=== PATIENT | male | born 1945 | race Caucasian/White ===

== ENCOUNTER 2021-03-23 08:17 | Emergency (ER) | payer MEDICARE, OTHER, SELFPAY ==
[2021-03-23 08:29] VITALS: BP 146/70; PULSE 57; RESP 18; TEMP 36.7; O2SAT 100
--- NOTE | 2021-03-23 08:55 | ED.SKABFB ---
HPI - Skin/Abscess/Foreign Bdy General Chief complaint: Skin/Abscess/Foreign Body Stated complaint: bites on butt, and infection in thumb Source: patient Mode of arrival: ambulatory Limitations: no limitations History of Present Illness HPI narrative: Patient is a 75-year-old male who presents complaining of right thumb pain and insect bites to buttocks. Patient reports poking self with a fishhook approximately 3 weeks ago. Reports intermittent infection in right thumb since. He reports small amount of drainage. He also reports insect bites to left buttocks x2 to 3 days. He denies all other complaints. He reports using Neosporin on thumb with limited relief. He reports tetanus is up-to-date. Denies any and all other complaints. MD complaint: insect bite/sting Related Data Home Medications Medication Instructions Recorded Confirmed amlodipine 5 mg PO DAILY 03/23/21 03/23/21 chlorthalidone 25 mg PO DAILY 03/23/21 03/23/21 cyclosporine [Restasis] 2 drp EACH EYE DAILY 03/23/21 03/23/21 omeprazole 20 mg PO DAILY 03/23/21 03/23/21 simvastatin 20 mg PO DAILY 03/23/21 03/23/21 tamsulosin 0.4 mg PO DAILY 03/23/21 03/23/21 trazodone 50 mg PO DAILY 03/23/21 03/23/21 venlafaxine 75 mg PO DAILY 03/23/21 03/23/21 Allergies Allergy/AdvReac Type Severity Reaction Status Date / Time No Known Allergies Allergy Verified 03/23/21 08:56 Review of Systems Review of Systems: CONSTITUTIONAL: Denies fever, chills, or sweats. EYES: Denies visual changes, redness, or discharge. ENT: Denies rhinorrhea, congestion, sore throat, or otalgia. CARDIOVASCULAR: Denies chest pain, palpitations, or edema. RESPIRATORY: Denies cough or dyspnea. GASTROINTESTINAL: Denies abdominal pain, nausea, vomiting, or diarrhea. GENITOURINARY: Denies dysuria or hematuria. SKIN: Denies rash or itching. MUSCULOSKELETAL: Denies back pain, joint pain, or myalgia. NEUROLOGIC: Denies headache, numbness, dizziness, or weakness. PSYCHIATRIC: Denies anxiety or depression. [facility] Past Medical History Medical History Anxiety BPH (benign prostatic hyperplasia) Depression HTN (hypertension) Hypercholesterolemia Surgical History Surgical History H/O transurethral resection of prostate History of lumbar fusion History of total replacement of right shoulder joint Family History Family History Mother Carcinoma of colon Social History Social History (Updated 03/23/21 @ 08:59 by WILDA Camargo) Smoking status: Never smoker Alcohol intake: current Alcohol use details: Occasional Substance use: never Comments At the time of signature, I have reviewed and agree with nursing past medical, surgical, social, and family history unless otherwise noted. Please see nursing chart for further information. There is no relevant family history pertinent to the presenting complaint. Exam Narrative: GENERAL: Well-appearing, well-nourished, and in no acute distress. HEAD: Normocephalic, atraumatic. EYES: EOMI. No redness or drainage. Conjunctiva are normal. ENT: Mucous membranes pink and moist. CHEST: No respiratory distress. HEART: Regular rate and rhythm. EXTREMITIES: Normal range of motion. SKIN: Warm and dry. Paronychia to right thumb, possible insect bites to left buttocks with mild erythema, no drainage NEURO: No focal deficits. Alert and oriented x3. Gait steady. PSYCH: Normal affect. No signs of depression or anxiety. Course Vital Signs Vital signs: Vital Signs Temperature 36.7 C 03/23/21 08:29 Pulse Rate 57 L 03/23/21 08:29 Respiratory Rate 18 03/23/21 08:29 Blood Pressure 146/70 H 03/23/21 08:29 Pulse Oximetry 100 03/23/21 08:29 Temperature 36.7 C 03/23/21 08:29 Pulse Rate 57 L 03/23/21 08:29 Respiratory Rate 18 03/23/21 08:29 Blood Pressure 146
== END 2021-03-23 09:12 | disposition home or self-care (01) ==
PROVIDERS: Emergency Provider Nurse Practitioner; PCP Internal Medicine
DX: S30.860A Insect bite (nonvenomous) of lower back and pelvis, initial encounter (principal); W57.XXXA Bitten or stung by nonvenomous insect and other nonvenomous arthropods, initial encounter; L03.011 Cellulitis of right finger; N40.0 Benign prostatic hyperplasia without lower urinary tract symptoms; I10 Essential (primary) hypertension; E78.00 Pure hypercholesterolemia, unspecified; Z96.611 Presence of right artificial shoulder joint
CPT/HCPCS: 99203; G0463

== ENCOUNTER 2023-11-10 10:08 | Emergency (ER) | payer MEDICARE, OTHER, SELFPAY ==
--- NOTE | ~2023-11-10 | XR_ITS ---
XR chest 2V DATE: 11/10/2023 10:45 INDICATION: Cough. History of pneumonia with scarring. TECHNIQUE: 2 views COMPARISON: None FINDINGS: Normal heart size. There is aortic calcification and tortuosity. No hilar or mediastinal en largement. The lungs are hyperinflated suggesting obstructive airways disease. No pulmonary infiltrate or consol idation, pleural effusion or pulmonary vascular congestion or pneumothorax. Diffuse avascular hyperostosis and dextro scoliosis of the thoracic spine. Right glenohumeral joint replacement. 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
[2023-11-10 10:18] VITALS: BP 150/74; PULSE 61; RESP 18; TEMP 36.5; O2SAT 97
--- NOTE | 2023-11-10 10:24 | ED.GENADULT ---
HPI - General Adult General Chief complaint: Upper Respiratory Infection Stated complaint: cough,caio Source: patient, RN notes reviewed and old records reviewed Mode of arrival: ambulatory Limitations: no limitations History of Present Illness HPI narrative: 78-year-old male patient presents to [facility] with complaints cough, shortness of breath, chest pain this started 4-5 days ago. Patient states taking Mucinex and Zyrtec with no relief. Patient denies sinus congestion. Related Data Home Medications Medication Instructions Recorded Confirmed amlodipine 5 mg tablet 5 mg PO DAILY 03/23/21 02/07/22 chlorthalidone 25 mg tablet 25 mg PO DAILY 03/23/21 02/07/22 omeprazole 20 mg capsule,delayed 20 mg PO DAILY 03/23/21 02/07/22 release simvastatin 20 mg tablet 20 mg PO DAILY 03/23/21 02/07/22 tamsulosin 0.4 mg capsule 0.4 mg PO DAILY 03/23/21 02/07/22 venlafaxine 75 mg capsule,extended 75 mg PO DAILY 03/23/21 02/07/22 release 24 hr alprazolam 1 mg tablet mg 11/10/23 finasteride 5 mg tablet mg 11/10/23 11/10/23 testosterone enanthate 75 mg/0.5 mg subcut 11/10/23 mL subcutaneous auto-injector (Xyosted) Allergies Allergy/AdvReac Type Severity Reaction Status Date / Time No Known Allergies Allergy Verified 11/10/23 10:26 Review of Systems Constitutional: Constitutional: Reports no additional constitutional complaints, Denies body ache(s), Denies chills, Denies fatigue, Denies fever(s) and Denies headache(s) Eyes: Eyes: Reports no additional eye complaints and Denies blurry vision ENT: Reports system reviewed and no additional complaints, except as documented, Denies vertigo, Denies dizziness, Denies ear discharge, Denies otalgia, Denies facial pain, Denies headache(s), Denies nasal congestion, Denies nasal discharge, Denies sinus pain, Denies sinus pressure and Denies sore throat Cardiovascular: Cardiovascular: Reports no additional cardiovascular complaints, Reports chest pain, Denies chest pain at rest, Denies rapid heart rate and Reports dyspnea Respiratory: Respiratory: Reports no additional respiratory complaints, Reports chest congestion, Reports cough, Denies pain on inspiration, Reports pain with cough and Reports dyspnea Gastrointestinal: Gastrointestinal: Denies abdominal pain, Denies diarrhea, Denies nausea and Denies vomiting Integumentary/Breasts: Skin/Breast: Denies rash Neurologic: Reports system reviewed and no additional complaints, except as documented, Denies vertigo, Denies dizziness and Denies headache(s) Endocrine: Endocrine: Denies fatigue PMFSH Past Medical History Medical History Anxiety BPH (benign prostatic hyperplasia) Depression HTN (hypertension) Hypercholesterolemia Surgical History Surgical History H/O transurethral resection of prostate History of lumbar fusion History of total replacement of right shoulder joint Family History Family History Mother Carcinoma of colon Social History Social History Smoking status: Never smoker Alcohol intake: current Alcohol use details: Occasional Substance use: never Comments At the time of my signature, I reviewed and agree with the nursing past medical, surgical, social, and family history. There is no relevant family history pertinent to the patient complaint. Exam Const: General: cooperative, no acute distress, ill appearing acutely and well nourished Nutritional Appearance: well nourished Orientation/consciousness: patient oriented x3 Limitations: no limitations HENMT: Head: normal to inspection and normocephalic Ears: external ears normal, TM's normal bilaterally, EAC's normal and mastoids normal Face/Nose/Sinus: normal facial exam Face and sinus: normal facial exam Mouth: Yes Norm
--- NOTE | 2023-11-10 10:29 | ECG_ITS ---
SEE SCANNED COPY FOR CONFIRMED REPORT MTDD
== END 2023-11-10 10:57 | disposition short-term general hospital (02) ==
PROVIDERS: Emergency Provider Registered Nurse; PCP Internal Medicine
DX: I45.10 Unspecified right bundle-branch block (principal); I44.4 Left anterior fascicular block; R06.00 Dyspnea, unspecified; R07.9 Chest pain, unspecified; R05.1 Acute cough; N40.0 Benign prostatic hyperplasia without lower urinary tract symptoms; I10 Essential (primary) hypertension; E78.00 Pure hypercholesterolemia, unspecified; F41.9 Anxiety disorder, unspecified; F32.A Depression, unspecified; Z96.611 Presence of right artificial shoulder joint
CPT/HCPCS: 71046; 93005; 99213; G0463

== ENCOUNTER 2025-01-14 07:47 | Outpatient (CLI) | payer MEDICARE, OTHER, SELFPAY ==
--- OUTSIDE RECORDS SUMMARY | 2025-01-14 07:49 | XMS_ITS | Encounter Summary ---
Author Organization [facility] Address [address] [place] [address] Phone Care Team Providers Care Survey Compiler Name Role Phone Stone Cano MD Primary Care Provider Santana Hicks APRN, TMH TEACHER Unavailable [phone] Emiliano Dave MD Unavailable [phone] Reason for Visit * Reason Comments Medication Refill Encounter Details Date Type Department Care Team (Late st Contact Info) Description 02/18/2023 Refill [facility] - Family Medicine [facility] [address] [place] [id number] Stone Cano MD [address] [address] Medication Refill Social History Tobacco Use Types Packs/Day Years Used Date Smoking Tobacco: Never Smokeless Tobacco: Never Alcohol Use Standard Drinks/Week Comments Yes 0 (1 standard drink = 0.6 oz pur e alcohol) twice a week PHQ-2 Answer Date Recorded Total Score - Questions 1-9 0 08/17 Sexually Active Control Partners Comments Yes Female Sex and Gender Information Value Date Recorded Sex Assigned at Not on file Legal Sex Male 8:44 PM CDT Gender Identity Not on file Sexual Orientation Not on file documented as of this encounter Miscellaneous Notes * Telephone Encounter - Ruth Smith RN - 02/19/2023 11:34 AM CDT PDMP 11/07/22 Medication failed the protocol, provider to review and approve the medication order if appropriate. Requested Prescriptions Pending Prescriptions Disp Refills ALPRAZolam (XANAX) 1 MG Tablet [Pharmacy Med Name: ALPRAZOLAM TABS 1MG] 180 Tablet 0 Sig: TAKE 1 TABLET TWICE A DAY NEEDED FOR ANXIETY Not Delegated - Benzodiazepines Protocol Failed - 02/18/2023 1:02 PM Failed - This refill cannot be delegated Passed - Visit with relevant provider in past 12 months or upcoming 90 days Recent Visits Date Type Provider Dept 09/05/22 Office Visit Stone Cano MD [facility] 02/28/22 Office Visit Stone Cano MD [facility] Showing recent visits within past 365 days and meeting all other requirements Future Appointments Date Type Provider Dept 03/06/23 Appointment Stone Cano MD [facility] Showing future appointments within next 90 days and meeting all other requirements documented in this encounter Plan of Treatment Upcoming Encounters Date Type Department Care Team (Late st Contact Info) Description 01/19/2025 11:15 AM CDT Office Visit [facility] [address] [place] [address] Santana Hicks APRN, TMH TEACHER [address] [place] [address] 02/23/2025 10:30 AM CDT [facility] - [facility] [address] [place] [address] Stone Cano MD [address] [address] documented as of this encounter Visit Diagnoses Diagnosis Anxiety Anxiety state, unspecified documented in this encounter Additional Health Concerns Infection Onset Date Last Indicated Resolved Time COVID - 19 11/10/2023 11/10/2023 11/10/2023 12:3 1 PM CDT Assessment Noted Time PHQ-9 Depression Total Score: 0 09/05/19 8:00 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
--- OUTSIDE RECORDS SUMMARY | 2025-01-14 07:49 | XMS_ITS | Encounter Summary ---
Author Organization [facility] Address [address] [place] [address] Phone Care Team Providers Care Coke Handling Supervisor Name Role Phone Stone Cano MD Primary Care Provider Santana Hicks APRN, INSTALLMENT ACCOUNT CHECKER Unavailable Emiliano Dave MD Unavailable [phone] Reason for Visit * Reason Comments Medication Refill Encounter Details Date Type Department Care Team (Late Contact Info) Description 11/07/2022 Refill [facility] [address] [place] [id number] Santana Hicks, UPS DRIVER, INSTALLMENT ACCOUNT CHECKER [address] [place] [address] Medication Refill Social History Tobacco Use Types [...] encounter Miscellaneous Notes * Telephone Encounter - Eve Villarreal RN - 11/07/2022 11:53 AM CDT Medication [facility] and [facility] for pediatric and adult patients. documented in this encounter Plan of Treatment Upcoming Encounters Date Type Department Care Team (Late st Contact Info) Description 01/19/2025 11:15 AM CDT Office Visit [facility] [address] [place] [address] Santana Hicks APRN, INSTALLMENT ACCOUNT CHECKER [address] [place] [address] 02/23/2025 10:30 AM CDT Office Visit [facility] - Family [facility] [address] [place] [address] Stone Cano MD #[address] [address] documented as of this encounter Visit Diagnoses Diagnosis Benign non-nodular prostatic hyperplasia with lower urinary tract symptoms documented in this encounter Additional Health Concerns Infection Onset Date Last Indicated Resolved Time COVID - 19 11/10/2023 11/10/2023 11/10/2023 12:3 1 PM CDT Assessment Noted Time PHQ-9 Depression Total Score: 0 09/05/19 23 8:00 AM COFFEE 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
--- OUTSIDE RECORDS SUMMARY | 2025-01-14 07:49 | XMS_ITS | Continuity of Care Document ---
Author Organization [facility] Address [address] [place] [address] Phone Care Team Providers Care Public Policy Professor Name Role Phone Unavailable Unavailable Unavailable Procedures Procedure Date Comprehensive Oral Evaluation 7 Full Mouth Series Of Radiographic Images Dental Panoramic Radiographic Image Advance Directives Directive Yes / No Effective Date File Name No Information Encounters Encounter Description Practice Location Reason(s) For Visit Diagnoses Date Provider Providers Copied on Encounter [facility] , [address], [place], [place], [id number], tel:[phone] [facility] [place] Encounter for dental exam and cleaning w abnormal findings No Information Referring Provider: Chayito Limon, [address], [place], [address]. tel:[phone] Family History Family Member Type Diagnosis Age At Onset No Information Payers Payer name Insurance type Covered republican ID Authoriza tion(s) No Information Social History Type Description Quantity Date Captured Comments Sex Male Smoking Status No Information Chief Complaint And Reason For Visit No Information Reason For Referral Reason For Referral No Information History Of Present Illness Encounter Date Complaint History Of Prese nt Illness No Information Functional Status Date Functional Assessmen t No Information Instructions Date Instruction Additional Infor mation No Information Assessments Type Assessment Date No Information Patient Care Teams Name Effective Dates (start - stop) Status Members No Information
--- OUTSIDE RECORDS SUMMARY | 2025-01-14 07:49 | XMS_ITS | Clinical Summary ---
Author Organization [facility] Address [address] [place] [address] Care Team Providers Care Bounty Hunter Name Role Phone Stone Cano MD Primary Care Provider [phone] [facility],non-owned Affiliates and Associated Physician Practices is amultiple site organization consisting of ambulatory clinics and hospital sitesin [place], [place], [place]. This disclosure is being madepursuant to the Care Everywhere program and may not contain all information available regarding this patient. 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 Gender Identity Not on file Sexual Orientation Not on file Plan of Treatment Health Maintenance Due Date Last Done Comments HEPATITIS C SCREENING 07/26/1963 DTAP/TDAP/TD VACCINES (1 - Tdap) 1966 PNEUMOCOCCAL VACCINE 50+ (1 of 1 - PCV) 1997 ZOSTER VACCINE (1 of 2) 1997 Respiratory Syncytial Virus (RSV) Vaccine Pt: or over 60 yrs (1 - 1-dose 75+ series) 2022 COVID-19 VACCINE (2 - season) 2024 08/24/2020 DEPRESSION SCREENING 07/16/2024 INFLUENZA VACCINE (Season Ended) 2025 04/29/2019, 04/11/2018, 03/29/2017, Additional history exists HEPATITIS B VACCINE Aged Out No longe r eligible based on patient's age to complete this topic HIB VACCINE Aged Out No longer eligi ble based on patient's age to complete this topic HPV VACCINE Aged Out No longer eligi ble based on patient's age to complete this topic MENINGOCOCCAL (Group B) VACCINE SHARED DECISION-MAKING Aged Out No longer eligible based on patient's age to complete this topic MENINGOCOCCAL GROUPS A/C/Y/W VACCINE Aged Out No longer eligible based on patient's age to complete this topic Insurance MEDICARE [facility] Address: [address] [place] [address] MEDICARE Care Teams Bounty Hunter Relationship Specialty Start Date End Date Stone Cano MD PCP - General 03/07/18
--- OUTSIDE RECORDS SUMMARY | 2025-01-14 07:49 | XMS_ITS | Referral Summary ---
Author Organization [address] [facility] [place] Address [address] [place] [address] Care Team Providers Care Business Case Analyst Name Role Phone Stone Cano MD Primary Care Provider [phone] Stone Cano MD Unavailable [phone] Lisa Foss Unavailable [phone] Encounters Date Type Department Care Team Description 12/23/2024 11:30 AM CDT Office Visit [facility] Surgery [address] [place] [address] A [address] [place] [address] Ashley Amor NP Arthritis of carpometacarpal (CMC) joint of right thumb (Primary Dx) 11/05/2024 10:15 AM CDT Office Visit [facility] [address] [facility] [address] [place] [address] Lisa Mack DO Acute non-recurrent maxillary sinusitis (Primary Dx); Bilateral impacted cerumen; Chronic maxillary sinusitis; Nasal congestion from Last 3 Months Allergies No known active allergies Medications ALPRAZolam (XANAX) 1 mg tablet Take 1 tablet (1 mg total) by mouth 2 (two) times a day as needed 06/24/20 19 Active amLODIPine (NORVASC) 5 mg tablet TAKE 1 TABLET DAILY 03/05/20 19 Active tamsulosin (FLOMAX) 0.4 mg extended release capsule 1 capsule (0.4 mg total) Active omeprazole (PriLOSEC) 20 mg capsule Take 1 capsule (20 mg total) by mouth daily Active simvastatin (ZOCOR) 20 mg tablet 08/19/19 20 Active chlorthalidone 25 mg tablet TAKE 1 TABLET DAILY 08/19/19 20 Active metroNIDAZOLE (METROGEL) 1 % gel 10/16/19 20 Active ketoconazole (NIZORAL) 2 % shampoo 10/16/19 20 Active Xyosted 75 mg/0.5 mL auto-injector 07/04/20 22 Active venlafaxine XR (EFFEXOR-XR) 150 mg 24 hr capsule 09/05/19 23 Active clindamycin-be nzoyl peroxide (BENZACLIN) gel 05/02/20 23 Active clobetasoL (TEMOVATE) 0.05 % external solution 05/02/20 23 Active finasteride (PROSCAR) 5 mg tablet TAKE 1 TABLET DAILY 90 tablet 3 11/20/19 24 Active fluticasone propionate (FLONASE) 50 mcg/actuation nasal sprayIndicatio ns:Nasal congestion Administer 2 sprays into each nostril daily 16 each 11/06/19 25 025 Discontinued Hospital, Clinic, or Other Facility Administered Medication Ordered Dose Route Frequency Start Date End Date Status lidocaine (XYLOCAINE) 10 mg/mL (1 %) injection 10 mgIndications:Administ ration of Local Anesthesia 10 mg infiltrate Once 12/23/2024 12/23/2024 Ended triamcinolone (KENALOG) 40 mg/mL injection 40 mgIndications:Arthriti s of carpometacarpal (CMC) joint of right thumb 40 mg OTHER Once 12/23/2024 12/23/2024 Ended Active Problems Problem Noted Date Diagnosed Date Chronic maxillary sinusitis 11/05/2024 Assessment & Plan (11/05/2024 4:00 PM CDT): Flonase 2 sprays into each nostril while looking down over the sink, do not sniff in or blow nose after use for at least 30 minutes daily Cefdinir twice daily with a meal for 14 days Call if no improvement Bilateral impacted cerumen 11/05/2024 Assessment & Plan (11/05/2024 3:59 PM CDT): Flonase 2 sprays into each nostril while looking down over the sink, do not sniff in or blow nose after use for at least 30 minutes daily Cefdinir twice daily with a meal for 14 days Call if no improvement Alcohol abuse 08/28/2023 Major depressive disorder, recurrent 08/28/2023 Adenomatous polyp of colon 07/30/2023 Change in bowel function 07/30/2023 History of reverse total rep lacement of right shoulder joint 08/29/2019 Overview (08/29/2019): Added automatically from request for surgery [id number] Anxiety 09/05/2018 Chronic midline low back pain without sciatica 0 09/05/2018 Encounter for screening for pneumonia 02/28/2018 Borderline diabetes 12/21/2016 Hyperglycemia 12/21/2016 Elevated PSA 11/02/2016 Acute non-recurrent maxillary sinusitis 05/05/20 16 Assessment & Plan (11/05/2024 10:49 AM CDT): Flonase 2 sprays into each nostril while looking down over the sink, do not sniff in or blow nose after use for at least 30 minutes daily Cefdinir twice daily with a meal for 14 days Call if no improvement Insomnia 03/16/2016 Memory loss 01/06/2016 Depression 06/03/2015 GERD (gastroesophageal reflux disease) 5 HTN (hypertension) 06/03/2015 Hyperhidrosis 06/03/2015 Hyperlipemia 06/03/2015 Low testosterone 06/03/2015 Slowing of urinary stream 01/27/2014 Overview (10/19/2016): SLOWING URINARY STREAM Benign prostatic hypertrophy without urinary obs truction 11/29/2013 Overview (10/19/2016): BPH W/O URINARY OBSTRUCT Localized osteoarthrosis 09/26/2013 Overview (10/20/2016): LOC OSTEOARTH NOS-HAND Resolved Problems Problem Noted Date Diagnosed Date Resolved Date Rotator cuff tear arthropath y of right shoulder 08/15/2019 09/18/2019 Overview (08/15/2019): Added automatically from request for surgery [id number] Social History Tobacco Use Types Packs/Day Years Used Date Smoking Tobacco: Never Smokeless Tobacco: Never Tobacco Cessation:Counseling Given: Not Answered Alcohol Use Standard Drinks/Week Comments Yes 0 (1 standard drink = 0.6 oz pur e alcohol) occasional Sex and Gender Information Value Date Recorded Sex Assigned at Not on file 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 Gender Identity Not on file Sexual Orientation Not on file Last Filed Vital Signs Vital Sign Reading Time Taken Comments Blood Pressure 143/73 11/05/2024 10:13 AM CDT Pulse 68 11/05/2024 10:13 AM CDT Temperature 37.1 C (98.7 F) 07/04/2021 4:24 PM ASSISTANT COACH Respiratory Rate 18 11/05/2024 10:13 AM CDT Oxygen Saturation 99% 11/05/2024 10:13 AM CDT Inhaled Oxygen Concentration - - Weight 85.3 kg (188 lb) 11/05/2024 10:13 AM CDT Height 167.6 cm (5' 5.98) 11/05/2024 10:13 AM C DT Body Mass Index 30.36 11/05/2024 10:13 AM CDT Plan of Treatment Not on file Medical Devices Implanted Type Area Supervisor Natural [employer] Plant Device Identifier Shelf Expiration Date Model / Serial / Lot Exactech 320-15-02 Superior Augment Glenoid 10d Plate Bone Average Shoulder System - [id number] - [id number] Implanted:Qty: 1 on 09/02/2019 by Wilmer Rebolledo MD at [facility] Right: Shoulder Exactech 06/10/2028-15- / [id number] / Exactech 32015- Equinoxe Lock Reverse Shoulder Glenosphere Screw Bone - [id number] - [id number] Implanted:Qty: 1 on 09/02/2019 by Wilmer Rebolledo MD at [facility] Right: Shoulder Exactech 05/14/2024-15- / [id number] / Exactech 320-00 Reverse Torque Define Shoulder Kit Screw - [id number] - [id number] Implanted:Qty: 1 on 09/02/2019 by Wilmer Rebolledo MD at [facility] Right: Shoulder Exactech 07/21/2024 320-20-00 / [id number] / Exactech 320-20-38 Equinoxe 4.5mm 38mm Kit Compression Lock Cap Reverse Shoulder - [id number] - [id number] Implanted:Qty: 1 on 09/02/2019 by Wilmer Rebolledo MD at [facility] Right: Shoulder Exactech 10/23/2023 320-20-38 / [id number] / Exactech 320-20-30 Equinoxe 4.5mm 30mm Kit Compression Lock Cap Reverse Shoulder - [id number] - [id number] Implanted:Qty: 1 on 09/02/2019 by Wilmer Rebolledo MD at [facility] Right: Shoulder Exactech 09/12/2023 320-20-30 / [id number] / Exactech 320-01-42 Equinoxe 42mm Glenosphere Shoulder Component Glenoid - [id number] - [id number] Implanted:Qty: 1 on 09/02/2019 by Wilmer Rebolledo MD at [facility] Right: Shoulder Exactech 04/30/2029 320-01-42 / [id number] / Exactech 300-01-13 Equinoxe 13mm Press Fit Primary Shoulder Stem Humeral - [id number] - [id number] Implanted:Qty: 1 on 09/02/2019 by Wilmer Rebolledo MD at [facility] Right: Shoulder Exactech 01/01/2028 300-01-13 / [id number] / Exactech 320-10-00 Equinoxe Reverse Shoulder +0mm Tray Humeral Adapter - [id number] - [id number] Implanted:Qty: 1 on 09/02/2019 by Wilmer Rebolledo MD at [facility] Right: Shoulder Exactech 06/25/2029 320-10-00 / [id number] / Exactech 320-42-00 Equinoxe 42mm Reverse Shoulder +0mm Liner Humeral - [id number] - [id number] Implanted:Qty: 1 on 09/02/2019 by Wilmer Rebolledo MD at [facility] Right: Shoulder Exactech 05/18/2024 320-42-00 / [id number] / Procedures Procedure Name Priority Date/Time Associated Diagnosis Comments MN REMOVAL IMPACTED CERUMEN INSTRUMENTATION UNILAT Routine 11/05/2024 10:15 AM CDT Bilateral impacted cerumen from Last 3 Months Results * MN REMOVAL IMPACTED CERUMEN INSTRUMENTATION UNILAT (11/05/2024 10:15 AM CDT) Narrative Lisa Mack DO - 11/05/2024 10:15 AM CDT Lisa Mack DO 11/05/2024 4:17 PM Ear Cerumen Removal Performed by: Lisa Mack DO Authorized by: Lisa Mack DO Consent Given by: Patient Timeout: prior to procedure the correct patient, procedure, and site was verified Verbal consent obtained: Yes Written consent obtained: No Risks, alternatives, and patient questions discussed: Yes Preparation: Patient was prepped using a clean technique Location: Bilateral L ear cerumen impacted?: Yes L ear method of removal: Instrumentation and magnification L ear instrumentation: Curette L ear magnification: Operating microscope R ear cerumen impacted?: Yes R ear method of removal: Instrumentation and magnification R ear instrumentation: Curette R ear magnification: Operating microscope Inspection: TM intact Hearing quality: Improved Patient tolerance: Patient tolerated the procedure well with no immediate complications Lisa Mack DO IN CLINIC/BEDSIDE ORDERABLES Final Result from Last 3 Months Insurance MEDICARE FOR LIFE MEDICARE FOR LIFE MEDICARE FOR LIFE MEDICARE FOR LIFE Advance Directives For more information, please contact: [phone] * Full Code (Latest Code Status on File) Date Activated Date Inactivated Comments 09/02/2019 4:09 PM 09/03/2019 5:14 PM Care Teams Business Case Analyst Relationship Specialty Start Date End Date Stone Cano MD [address] [facility] [address] [address] PCP - General 05/11/19 Stone Cano MD [address] [facility] [address] [address] 05/11/19 Lisa Foss PA [address] [facility] [address] [address] Physician Climatology Professor Orthopedic Surgery 09/03/19
--- OUTSIDE RECORDS SUMMARY | 2025-01-14 07:49 | XMS_ITS | Encounter Summary ---
Author Organization [facility] Address [address] [place] [address] Phone Care Team Providers Care Proposal Analyst Name Role Phone Stone Cano MD Primary Care Provider Santana Hicks APRN, SEALING AND CANCELING MACHINE OPERATOR Unavailable [phone] Emiliano Dave MD Unavailable [phone] Reason for Visit * Reason Comments Medication Refill Encounter Details Date Type Department Care Team (Late Contact Info) Description 12/12/2023 Refill [facility] #[address] [place] [id number] Santana Hicks, JET DYEING MACHINE OPERATOR, SEALING AND CANCELING MACHINE OPERATOR [address] [place] [address] Medication Refill Social History Tobacco Use Types Packs/Day Years Used Date Smoking Tobacco: Never Smokeless Tobacco: Never Alcohol Use Standard Drinks/Week Comments Yes 0 (1 standard drink = 0.6 oz pur e alcohol) twice a week [facility] Utilities Answer Date Recorded In the past 12 months has [employer] electric, gas, oil, or water company threatened to shut off services in your home? No 08/18/2023 Social Connection and Isolation Panel Answer Date Recorded In a typical week, how many times do you talk on the phone with family, friends, or neighbors? More than three times a week 08/18/2023 How often do you get togethe r with friends or relatives? More than three times a week 08/18/2023 How often do you attend chur or episcopalian services? Patient declined 08/18/2023 Do you belong to any clubs o r organizations such as holiness groups, unions, fraternal or athletic groups, or school groups? Patient declined 08/18/2023 How often do you attend meet ings of the clubs or organizations you belong to? Patient declined 08/18/2023 Are you , , di vorced, , never , or living with a partner? 08/18/2023 AUDIT-C Answer Date Recorded Q1: How often do you have a drink containing alc ohol? Patient declined 08/18/2023 Q2: How many drinks containi ng alcohol do you have on a typical day when you are drinking? Patient declined 08/18/2023 Q3: How often do you have si x or more drinks on one occasion? Patient declined 08/18/2023 Overall Financial Resource Strain (CARDIA) Answe r Date Recorded How hard is it for you to pa y for the very basics like food, housing, medical care, and heating? Not hard at all 08/18/2023 PHQ-2 Answer Date Recorded Total Score - Questions 1-9 0 11/2023 [facility] - Occupational Stress Questionnaire Answer Date Recorded Do you feel stress - tense, restless, nervous, or anxious, or unable to sleep at night because your mind is troubled all the time - these days? To some extent 08/18/2023 Exercise Vital Sign Answer Date Recorde d On average, how many days pe r week do you engage in moderate to strenuous exercise (like a brisk walk)? Patient declined On average, how many minutes do you engage in exercise at this level? Patient declined 08/18/2023 Hunger Vital Sign Answer Date Recorded Within the past 12 months, y ou worried that your food would run out before you got the money to buy more. Never true 08/18/19 24 Within the past 12 months, t he food you bought just didn't last and you didn't have money to get more. Never true 08/18/2023 PRAPARE - Transportation Answer Date Re corded In the past 12 months, has l ack of transportation kept you from medical appointments or from getting medications? No 09/2023 In the past 12 months, has l ack of transportation kept you from meetings, work, or from getting things needed for daily living? No 08/18/2023 Housing Stability Vital Sign Answer Shaun e Recorded In the last 12 months, was t here a time when you were not able to pay the mortgage or rent on time? No 08/18/2023 Number of Places Lived in the Last Year Not on f ile 08/18/2023 In the last 12 months, was t here a time when you did not have a steady place to sleep or slept in a skilled nursing (including now)? No 08/18/2023 Education Answer Date Recorded What is the highest level of school you have completed or the highest degree you have received? Some college, no degree 02/27/2023 Sexually Active Control Partners Comments Yes Female Sex and Gender Information Value Date Recorded Sex Assigned at Not on file Legal Sex Male 8:44 PM CDT Gender Identity Not on file Sexual Orientation Not on file documented as of this encounter Plan of Treatment Upcoming Encounters Date Type Department Care Team (Late st Contact Info) Description 01/19/2025 11:15 AM CDT Office Visit [facility] [address] [place] [address] Santana Hicks APRN, SEALING AND CANCELING MACHINE OPERATOR [address] [place] [address] 02/23/2025 10:30 AM CDT Office Visit [facility] - Family Medicine [facility] [address] [place] [address] Stone Cano MD [address] [address] documented as of this encounter Visit Diagnoses Diagnosis Benign non-nodular prostatic hyperplasia with lower urinary tract symptoms documented in this encounter Additional Health Concerns Assessment Noted Time PHQ-9 Depression Total Score: 0 08/20/19 24 8:46 AM 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
--- OUTSIDE RECORDS SUMMARY | 2025-01-14 07:49 | XMS_ITS | Encounter Summary ---
Author Organization [facility] Address [address] [place] [address] Phone Care Team Providers Care Horse Doctor Name Role Phone Stone Cano MD Primary Care Provider [phone] Santana Hicks APRN, FINAL TOUCH UP PAINTER Unavailable [phone] Emiliano Dave MD Unavailable [phone] Reason for Visit * Reason Comments Medication Refill Encounter Details Date Type Department Care Team (Late st Contact Info) Description 11/07/2022 Refill [facility] [address] [place] [id number] Stone Cano MD #[address] [address] Medication Refill Social History Tobacco Use Types [...] encounter Miscellaneous Notes * Telephone Encounter - Colleen Katz RN - 11/07/2022 9:41 AM CDT PDMP 08/07/22 Medication failed the protocol, provider to review and approve the medication order if appropriate. Requested Prescriptions Pending Prescriptions Disp Refills ALPRAZolam (XANAX) 1 MG Tablet [Pharmacy Med Name: ALPRAZOLAM TABS 1MG] 180 Tablet 0 Sig: TAKE 1 TABLET TWICE A DAY NEEDED FOR ANXIETY Not Delegated - Benzodiazepines Protocol Failed - 11/07/2022 9:26 AM Failed - This refill cannot be delegated Passed - Visit with relevant provider in past 12 months or upcoming 90 days Recent Visits Date Type Provider Dept 09/05/22 Office Visit Stone Cano MD [facility] 02/28/22 Office Visit Stone Cano MD [facility] Showing recent visits within past 365 days and meeting all other requirements Future Appointments No visits were found meeting these conditions. Showing future appointments within next 90 days and meeting all other requirements documented in this encounter Plan of Treatment Upcoming Encounters Date Type Department Care Team (Late st Contact Info) Description 01/19/2025 11:15 AM CDT Office Visit [facility] [address] [place] [address] Santana Hicks INTERNAL SALES, FINAL TOUCH UP PAINTER [address] [place] [address] 02/23/2025 10:30 AM CDT [facility] - [facility] [address] [place] [address] Stone Cano MD #[address] [address] documented as of this encounter Visit Diagnoses Diagnosis Anxiety Anxiety state, unspecified documented in this encounter Additional Health Concerns Infection Onset Date Last Indicated Resolved Time COVID - 19 11/10/2023 11/10/2023 11/10/2023 12:3 1 PM CDT Assessment Noted Time PHQ-9 Depression Total Score: 0 09/05/19 8:00 AM SHIPS OR BARGES LOADER documented as of this encounter Care Teams Horse Doctor Relationship Specialty Start Date End Date Stone Cano MD #[address] [address] PCP - General Family Medicine 06/03/15 Santana Hicks APRN, FINAL TOUCH UP PAINTER [address] [place] [address] Nurse Practitioner Advanced Practice Nurse 06/06/22 Emiliano Dave MD [address] [place] [address] Consulting Physician Gastroenterology 09/07/22 documented as of this encounter
--- OUTSIDE RECORDS SUMMARY | 2025-01-14 07:49 | XMS_ITS | Encounter Summary ---
Author Organization [facility] Address [address] [place] [address] Phone Care Team Providers Care Spike Machine Operator Name Role Phone Stone Cano MD Primary Care Provider Santana Hicks APRN, PROJ MGR Unavailable [phone] Emiliano Dave MD Unavailable [phone] Reason for Visit * Reason Comments Medication Refill Encounter Details Date Type Department Care Team (Late st Contact Info) Description 09/10/2023 Refill [facility] - Family Medicine [facility] [address] [place] [address] Stone Cano MD #[address] [address] Medication Refill Social History Tobacco Use Types Packs/Day Years Used Date Smoking Tobacco: Never Smokeless Tobacco: Never Alcohol Use Standard Drinks/Week Comments Yes 0 (1 standard drink = 0.6 oz pur e alcohol) twice a week [facility] Utilities Answer Date Recorded In the past 12 months has e electric, gas, oil, or water company threatened [...] How often do you attend chur or rastafarian services? Patient declined 08/18/2023 Do you belong to any clubs o r organizations such as yazidi groups, unions, fraternal or athletic groups, or [...] Total Score - Questions 1-9 0 11/2023 [facility] - Occupational Stress Questionnaire Answer Date Recorded [...] place to sleep or slept in a [facility] (including now)? No 08/18/2023 Education Answer Date [...] Telephone Encounter - Ruth Smith RN - 09/11/2023 8:20 AM CST PDMP 08/03/23 - 90 days Medication failed the protocol, provider to review and approve the medication order if appropriate. Requested Prescriptions Pending Prescriptions Disp Refills ALPRAZolam (XANAX) 1 MG Tablet [Pharmacy Med Name: ALPRAZOLAM TABS 1MG] 180 Tablet 0 Sig: TAKE 1 TABLET TWICE A DAY NEEDED FOR ANXIETY Not Delegated - Benzodiazepines Protocol Failed - 09/10/2023 10:38 AM Failed - This refill cannot be delegated Passed - Visit with relevant provider in past 12 months or upcoming 90 days Recent Visits Date Type Provider Dept 08/20/23 Office Visit Stone Cano MD [facility] 03/06/23 Office Visit Stone Cano MD [facility] Showing recent visits within past 365 days and meeting all other requirements Future Appointments No visits were found meeting these conditions. Showing future appointments within next 90 days and meeting all other requirements E COMMERCE MARKETING MANAGER documented in this encounter Plan of Treatment Upcoming Encounters Date Type Department Care Team (Late st Contact Info) Description 01/19/2025 11:15 AM CDT Office Visit [facility] [address] [place] [address] Santana Hicks APRN, PROJ MGR [address] [place] [address] 02/23/2025 10:30 AM CDT Office Visit [facility] [address] [place] [address] Stone Cano MD #[address] [address] documented as of this encounter Visit Diagnoses Diagnosis Anxiety Anxiety state, unspecified documented in this encounter Additional Health Concerns Infection Onset Date Last Indicated Resolved Time COVID - 19 11/10/2023 11/10/2023 11/10/2023 12:3 1 PM CDT Assessment Noted Time PHQ-9 Depression Total Score: 0 08/20/19 8:46 AM E COMMERCE MARKETING MANAGER documented as of this encounter Care Teams Spike Machine Operator Relationship Specialty Start Date End Date Stone Cano MD #[address] [address] PCP - General Family Medicine 06/03/15 Santana Hicks APRN, PROJ MGR [address] [place] [address] Nurse Practitioner Advanced Practice Nurse 06/06/22 Emiliano Dave MD [address] [place] [address] Consulting Physician Gastroenterology 09/07/22 documented as of this encounter
--- OUTSIDE RECORDS SUMMARY | 2025-01-14 07:49 | XMS_ITS | Continuity of Care Document ---
Author Name [facility] Organization [facility] Care Team Providers Care Assistant Product Manager Name Role Phone [facility] Unavailable Unavailable Problems Combined list of problems from Department [facility] and [facility] facilities. It does not include entries that were removed or entered in error. Problem Status Onset Date Problem Type Date of Resolution Comments Source Alcohol Abuse Active Condition [facility] Major Depressive Disorder, Recurrent Active Condition [facility] Medications Combined list of outpatient medications from [facility] and [facility] facilities.Medications provided include 1) outpatient medications from the last 15 months, and 2) patient-reported medications. Medication Details Route Status Patient Instructions Prescription Expires Prescription Number Last Dispense Date Ordering Provider Order Date Order Qty Source ALBUTEROL SULFATE HFA (albuterol sulfate), 90 MCG, HFA AER AD, INHALATION, [facility]/ IKMA, 6.7 g CANISTER Active [id number] 4 2023 6.7 Pharmac y Data Transac tion Service Facilit y ALPRAZOLAM (ALPRAZOLAM ), 1MG, TABLET, ORAL, ACTAVIS ELIZABE, 500 ea. BOTTLE Active [id number] 4 2023 180 Pharmac y Data Transac tion Service Facilit y ASPIRIN 81MG TAB,EC TAKE ONE TABLET BY MOUTH ONCE A DAY ORAL ACTIVE LATAL,BAR ISABELLE S 2011 [facility] ATENOLOL 50MG TAB TAKE ONE-HALF TABLET BY MOUTH ONCE A DAY ORAL ACTIVE LATAL,BAR ISABELLE S 2011 [facility] BENZONATATE (benzonatat e), 200 MG, CAPSULE, ORAL, STRIDES PHARMA, 100 ea. BOTTLE Active [id number] 4 2023 42 Pharmac y Data Transac tion Service Facilit y CHLORTHALID ONE (chlorthali done), 25 MG, TABLET, ORAL, 'S LAB, 1000 ea. BOTTLE Active [id number] 4 2023 90 Pharmac y Data Transac tion Service Facilit y CYANOCOBALA MIN 1000MCG TAB TAKE ONE TABLET BY MOUTH ONCE A DAY ORAL ACTIVE LATAL,JAYLAN ISABELLE S 2011 [facility] FINASTERIDE (FINASTERID E), 5 MG, TABLET, ORAL, EXELAN PHARMACE, 90 ea. BOTTLE Active [id number] 4 2023 90 Pharmac y Data Transac tion Service Facilit y FINASTERIDE 5MG TAB TAKE ONE TABLET BY MOUTH ONCE A DAY [facility] ACTIVE [facility] FISH OIL CAP/TAB TAKE 1 CAP/TAB BY MOUTH ONCE A DAY ORAL ACTIVE LATAL,[facility] GLUCOSAMINE CAP/TAB TAKE 1 CAP/TAB BY MOUTH ONCE A DAY ORAL ACTIVE LATAL,[facility] S 2011 [facility] HYDROCHLORO THIAZIDE 25MG TAB TAKE ONE TABLET BY MOUTH EVERY MORNING ORAL ACTIVE LATAL,[facility] MULTIVITAMI N/MINERALS ANTIOXIDANT CAP/TAB TAKE ONE TABLET BY MOUTH ONCE A DAY ORAL ACTIVE LATAL,[facility] 2011 [facility] MULTIVITAMI NS CAP/TAB TAKE ONE TABLET BY MOUTH ONCE A DAY ORAL ACTIVE LATAL,[facility] 2011 [facility] OMEPRAZOLE (omeprazole ), 20 MG, CAPSULE DR ORAL, [place], 1000 ea. BOTTLE Active [id number] 4 2023 90 Pharmac y Data Transac tion Service Facilit y OMEPRAZOLE 20MG CAP,EC TAKE 1 CAPSULE BY MOUTH EVERY MORNING ORAL ACTIVE LATAL,JAYLAN ISABELLE S 2011 [facility] POLYMYXIN B SUL-TRIMETH OPRIM (POLYMYXIN B SULFATE/TMP ), 10K/ML-0.1, DROPS, OPHTHALMIC, ARRIOLA PHARM, 10 ml DROP BTL Active [id number] 11/10/19 2 4 2023 10 Pharmac y Data Transac tion Service Facilit y PREDNISONE (prednisone ), 20 MG, TABLET, ORAL, NOVITIUM/AN I PH, 500 ea. BOTTLE Active [id number] 4 2023 30 Pharmac y Data Transac tion Service Facilit y PREDNISONE (prednisone ), 20 MG, TABLET, ORAL, NOVITIUM/AN I PH, 500 ea. BOTTLE Active [id number] 4 2023 10 Pharmac y Data Transac tion Service Facilit y QUINAPRIL HCL 20MG TAB TAKE TWO TABLETS BY MOUTH ONCE A DAY ORAL ACTIVE LATAL,JAYLAN TIANA S 2011 [facility] SIMVASTATIN 80MG TAB TAKE ONE-HALF TABLET BY MOUTH EVERY EVENING ORAL ACTIVE LATAL,JAYLAN ISABELLE S 2011 [facility] TAMSULOSIN HCL (TAMSULOSIN HCL), 0.4 MG, CAP.SR 24H, ORAL, ZYDUS PHARMACEU, 1000 ea. BOTTLE Active [id number] 4 2023 90 Pharmac y Data Transac tion Service Facilit y TAMSULOSIN HCL 0.4MG CAP TAKE 1 CAPSULE BY MOUTH ONCE A DAY ORAL ACTIVE LATAL,JAYLAN ISABELLE S 2011 [facility] XYOSTED (testostero ne enanthate), 100 MG/0.5, AUTO INJCT, SUBCUT, ANTARES PHARMA, .5 ml SYRINGE Active [id number] 4 2023 6 Pharmac y Data Transac tion Service Facilit y XYOSTED (testostero ne enanthate), 100 MG/0.5, AUTO INJCT, SUBCUT, ANTARES PHARMA, .5 ml SYRINGE Active [id number] 4 2023 2 Pharmac y Data Transac tion Service Facilit y XYOSTED (testostero ne enanthate), 100 MG/0.5, AUTO INJCT, SUBCUT, ANTARES PHARMA, .5 ml SYRINGE Cancele d [id number] : 2023 0 Pharmac y Data Transac tion Service Facilit y XYOSTED (testostero ne enanthate), 100 MG/0.5, AUTO INJCT, SUBCUT, ANTEmmaus Medical PHARMA, .5 ml SYRINGE Cancele d [id number] : 2023 0 Pharmac y Data Transac tion Service Facilit y Immunizations Combined list of available immunizations from the Department of Defense and Veterans Affairs facilities. Immunization Series Date Given Administered By Site Reaction Lot Number CVX Code Drug Licensed Occupational Therapist Status Comments Source influenza, high-dose, quadrivalent 2020 ALUL, () Not Given influenza , high-dose , quadrival ent [facility] influenza virus vaccine, split virus (incl. purified surface antigen)-reti red CODE 1 2006 Unknown, Provider [id number] 15 Sanofi Pasteur ([facility]) complet ed influenza virus vaccine, split virus (incl. purified surface antigen)- retired CODE [facility] typhoid vaccine, parenteral, other than acetone-kille d, dried 1 2006 Unknown, Provider [id number] Sanofi Pasteur ([facility]) complet ed typhoid vaccine, parentera l, other than acetone-k illed, dried [facility] influenza virus vaccine, split virus (incl. purified surface antigen)-reti red CODE 1 2005 Unknown, Provider [id number] 15 Sanofi Pasteur ([facility]) complet ed influenza virus vaccine, split virus (incl. purified surface antigen)- retired CODE [facility] influenza virus vaccine, split virus (incl. purified surface antigen)-reti red CODE 1 2004 Unknown, Provider [id number] 15 Sanofi Pasteur ([facility]) complet ed influenza virus vaccine, split virus (incl. purified surface antigen)- retired CODE [facility] typhoid vaccine, parenteral, other than acetone-kille d, dried 1 2004 Unknown, Provider [id number] Sanofi Pasteur ([facility]) complet ed typhoid vaccine, parentera l, other than acetone-k illed, dried [facility] influenza virus vaccine, split virus (incl. purified surface antigen)-reti red CODE 1 2004 Unknown, Provider [id number] 15 Sanofi Pasteur ([facility]) complet ed influenza virus vaccine, split virus (incl. purified surface antigen)- retired CODE [facility] influenza virus vaccine, whole virus 1 2002 Unknown, Provider [id number] 16 [employer] (PW) complet ed influenza virus vaccine, whole virus DoD typhoid vaccine, parenteral, other than acetone-kille d, dried 1 2002 Unknown, Provider [id number] 41 [facility] ([facility]) complet ed typhoid vaccine, parentera l, other than acetone-k illed, dried DoD influenza virus vaccine, whole virus 1 2001 Unknown, Provider [id number] 16 [facility] ([facility]) complet ed influenza virus vaccine, whole virus DoD tuberculin skin test; purified protein derivative solution, intradermal 1 2001 Unknown, Provider [id number] 96 [facility] ([facility]) complet ed tuberculi n skin test; purified protein derivativ e solution, intraderm al DoD influenza virus vaccine, whole virus 1 2000 Unknown, Provider [id number] 16 [facility] ([facility]) complet ed influenza virus vaccine, whole virus DoD typhoid vaccine, parenteral, other than acetone-kille d, dried 2000 Unknown, Provider [id number] 41 [facility] ([facility]) complet ed typhoid vaccine, parentera l, other than acetone-k illed, dried DoD tuberculin skin test; purified protein derivative solution, intradermal 1 2000 Unknown, Provider [id number] 96 [facility] ([facility]) complet ed tuberculi n skin test; purified protein derivativ e solution, intraderm al DoD influenza virus vaccine, whole virus 1 1999 Unknown, Provider [id number] 16 YuKeira ([facility]) complet ed influenza virus vaccine, whole virus DoD tuberculin skin test; purified protein derivative solution, intradermal 1 1999 Unknown, Provider [id number] 96 [facility] complet ed tuberculi n skin test; purified protein derivativ e solution, intraderm al DoD hepatitis A vaccine, adult dosage 2 1999 Unknown, Provider [id number] Merck (MSD) complet ed hepatitis A vaccine, adult dosage DoD typhoid vaccine, parenteral, other than acetone-kille d, dried 1 1998 Unknown, Provider [id number] 41 [employer] (CON) complet ed typhoid vaccine, parentera l, other than acetone-k illed, dried DoD tetanus and diphtheria toxoids, adsorbed, preservative free, for adult use (2 Lf of tetanus toxoid and 2 Lf of diphtheria toxoid) 1 1998 Unknown, Provider 09 () complet ed tetanus and diphtheri a toxoids, adsorbed, preservat maxine free, for adult use (2 Lf of tetanus toxoid and 2 Lf of diphtheri a toxoid) [facility] hepatitis A vaccine, adult dosage 1 1998 Unknown, Provider [id number] Merck (MSD) complet ed hepatitis A vaccine, adult dosage DoD influenza virus vaccine, whole virus 1 1998 Unknown, Provider [id number] 16 [employer] (CON) complet ed influenza virus vaccine, whole virus DoD influenza virus vaccine, whole virus 1 1996 Unknown, Provider 16 () complet ed influenza virus vaccine, whole virus DoD typhoid vaccine, parenteral, acetone-kille d, dried ([place] ) 3 1995 Unknown, Provider 53 () complet ed typhoid vaccine, parentera l, acetone-k illed, dried ([place] ) DoD yellow fever vaccine 1 1995 Unknown, Provider 37 () complet ed yellow fever vaccine DoD tetanus and diphtheria toxoids, adsorbed, preservative free, for adult use (2 Lf of tetanus toxoid and 2 Lf of diphtheria toxoid) 1 1988 Unknown, Provider 09 () complet ed tetanus and diphtheri a toxoids, adsorbed, preservat maxine free, for adult use (2 Lf of tetanus toxoid and 2 Lf of diphtheri a toxoid) DoD tetanus and diphtheria toxoids, adsorbed, preservative free, for adult use (2 Lf of tetanus toxoid and 2 Lf of diphtheria toxoid) 1 1988 Unknown, Provider 09 () complet ed tetanus and diphtheri a toxoids, adsorbed, preservat maxine free, for adult use (2 Lf of tetanus toxoid and 2 Lf of diphtheri a toxoid) DoD trivalent poliovirus vaccine, live, oral 1 1965 Unknown, Provider 02 () complet ed trivalent polioviru s vaccine, live, oral DoD measles, mumps and rubella virus vaccine 1 1965 Unknown, Provider 03 Transcribed (TRS) complet ed measles, mumps and rubella virus vaccine DoD Encounters Combined list of: 1) Encounters from Department of Veterans Affairs facilities going backup to the last 18 months, not all VA inpatient encounters are included; 2) Encounters from the Department of Defense facilities going backup to 280 months. Location Location Details Encounter Type Encounter Number Reason For Visit Attending Provider ADM Date DC Date Status Disposition Source [facility] Outpatient Encounter [id number] 06/09 [facility] Social History Combined list of available smoking, tobacco, and other social history from Department of Defense and Veterans Affairs facilities. Social History Type Response Date Comment Sourc e Tobacco smoking status NHIS LIFETIME NON-USER OF TOBACCO 02/09/2012 [facility] This section is an empty social history section. DoD
--- OUTSIDE RECORDS SUMMARY | 2025-01-14 07:49 | XMS_ITS | Encounter Summary ---
Author Organization [facility] Address [address] [place] [address] Phone Care Team Providers Care Nurse General Duty Name Role Phone Stone Cano MD Primary Care Provider Santana Hicks APRN, FEATURE WRITER Unavailable [phone] Emiliano Dave MD Unavailable [phone] Reason for Visit * Reason Comments Medication Refill Encounter Details Date Type Department Care Team (Late st Contact Info) Description 04/27/2020 [facility]ill [facility] [address] [place] [address] Stone Cano MD [address] [address] Medication Refill Social History Tobacco Use Types Packs/Day Years Used Date Smoking Tobacco: Never Smokeless Tobacco: Never Alcohol Use Standard Drinks/Week Comments Yes 0 (1 standard drink = 0.6 oz pur e alcohol) twice a week PHQ-2 Answer Date Recorded PHQ-2 Score 0 03/17/2019 Sexually Active Control Partners Comments Yes Female Sex and Gender Information Value Date Recorded Sex Assigned at Not on file Legal Sex Male 8:44 PM CDT Gender Identity Not on file Sexual Orientation Not on file COVID-19 Exposure Response Date Recorded In the last month, have you been in contact with someone who was confirmed or suspected to have Coronavirus / COVID-19? No / Unsure 04/15/2020 9:15 AM CDT documented as of this encounter Miscellaneous Notes * Telephone Encounter - Stone Cano MD - 04/28/2020 11:50 AM CDT Prescription pending signature * Telephone Encounter - Sho Pierre RN - 04/28/2020 11:44 AM CDT Requested Prescriptions Pending Prescriptions Disp Refills ALPRAZolam (XANAX) 1 MG Tablet [Pharmacy Med Name: ALPRAZOLAM TABS 1MG] 180 Tab 0 Sig: TAKE 1 TABLET TWICE A DAY NEEDED FOR ANXIETY Not Delegated - Psychiatry: Anxiolytics/Hypnotics Failed - 04/27/2020 7:50 AM Failed - This refill cannot be delegated Passed - Valid encounter within last 6 months Past Office Visits Recent Outpatient Visits 5 months ago Essential hypertension [facility] Stone Simon MD 8 months ago [facility], FEATURE WRITER 11 months ago Anxiety [facility] Stone Simon MD 1 year ago Essential hypertension [facility] Stone Simon MD 1 year ago Essential hypertension [facility] Stone Simon MD Upcoming Appointments Future Appointments In 1 month Stone Cano MD [facility] In 2 months Canelo Garcia MD [facility], [facility] - Recent and Past Visits Recent Visits Date Type Provider Dept 11/27/19 Telemedicine Stone Cano MD [facility] 08/22/19 [facility] Showing recent visits within past 460 days with a meds authorizing provider and meeting all other requirements Future Appointments Date Type Provider Dept 06/03/20 Appointment Stone Cano MD [facility] Showing future appointments within next 90 days with a meds authorizing provider and meeting all other requirements documented in this encounter Plan of Treatment Upcoming Encounters Date Type Department Care Team (Late st Contact Info) Description 01/19/2025 11:15 AM CDT Office Visit [facility] [address] [place] [address] Santana Hicks APRN, FEATURE WRITER [address] [place] [address] 02/23/2025 10:30 AM CDT Office Visit [facility] [address] [place] [address] Stone Cano MD [address] [address] documented as of this encounter Visit Diagnoses Not on filedocumented in this encounter Additional Health Concerns Infection Onset Date Last Indicated Resolved Time COVID - 19 06/08/2020 06/08/2020 06/28/2020 12:1 8 AM NEGATIVE DEVELOPER COVID - 19 11/10/2023 11/10/2023 11/10/2023 12:3 1 PM CDT Assessment Noted Time PHQ-9 Depression Total Score: 0 08/22/19 8:59 AM NEGATIVE DEVELOPER documented as of this encounter Care Teams Nurse General Duty Relationship Specialty Start Date End Date Stone Cano MD [address] [address] PCP - General Family Medicine 06/03/15 Santana Hicks APRN, FEATURE WRITER [address] [place] [address] Nurse Practitioner Advanced Practice Nurse 06/06/22 Emiliano Dave MD [address] [place] [address] Consulting Physician Gastroenterology 09/07/22 documented as of this encounter
--- OUTSIDE RECORDS SUMMARY | 2025-01-14 07:49 | XMS_ITS | Encounter Summary ---
Author Organization [facility] Address [address] [place] [address] Phone Care Team Providers Care Recreation Coordinator Name Role Phone Stone Cano MD Primary Care Provider Santana Hicks APRN, EDGER SAW OPERATOR Unavailable [phone] Emiliano Dave MD Unavailable [phone] Reason for Visit * Reason Comments Medication Refill Encounter Details Date Type Department Care Team (Late st Contact Info) Description 11/25/2020 Refill [facility] - Family [facility] [address] [place] [id number] Stone Cano MD [address] [address] Medication Refill Social History Tobacco Use Types Packs/Day Years Used Date Smoking Tobacco: Never Smokeless Tobacco: Never Alcohol Use Standard Drinks/Week Comments Yes 0 (1 standard drink = 0.6 oz pur e alcohol) twice a week PHQ-2 Answer Date Recorded Total Score - Questions 1-9 0 10/2020 Sexually Active Control Partners Comments Yes Female Sex and Gender Information Value Date Recorded Sex Assigned at Not on file Legal Sex Male 8:44 PM CDT Gender Identity Not on file Sexual Orientation Not on file documented as of this encounter Miscellaneous Notes * Telephone Encounter - Stone Cano MD - 11/25/2020 12:34 PM CDT Prescription pending signature * Telephone Encounter - Luis Ruth L, RN - 11/25/2020 10:32 AM CDT [place] 08/27/20 for 90 days Medication failed the protocol, provider to review and approve the medication order if appropriate. Requested Prescriptions Pending Prescriptions Disp Refills ALPRAZolam (XANAX) 1 MG Tablet [Pharmacy Med Name: ALPRAZOLAM TABS 1MG] 180 Tablet 0 Sig: TAKE 1 TABLET TWICE A DAY NEEDED FOR ANXIETY [facility] Not Delegated - Psychiatry: Anxiolytics/Hypnotics Failed - 11/25/2020 10:32 AM Failed - This refill cannot be delegated Passed - Valid encounter within last 6 months Past Office Visits Recent Outpatient Visits 3 months ago Essential hypertension [facility] - Stone Simon MD 12 months ago Essential hypertension [facility] - Stone Simon MD 1 year ago Chronic right shoulder pain [facility] - Missy De Leon APN, EDGER SAW OPERATOR 1 year ago [facility] 1 year ago Essential hypertension [facility] Stone Simon MD Upcoming Appointments Future Appointments In 1 month Canelo Garcia MD [facility], [facility] In 2 months [facility]S [facility], [facility] In 3 months [facility] A LAY BROTHER - Recent and Past Visits Recent Visits Date Type Provider Dept 08/19/20 Office Visit Stone Cano MD [facility] 11/27/19 Telemedicine Stone Cano MD [facility] Showing recent visits within past 460 days with a meds authorizing provider and meeting all other requirements Future Appointments Date Type Provider Dept 08/11/21 Appointment Stone Cano MD [facility] Showing future appointments within next 90 days with a meds authorizing provider and meeting all other requirements documented in this encounter Plan of Treatment Upcoming Encounters Date Type Department Care Team (Late st Contact Info) Description 01/19/2025 11:15 AM CDT Office Visit [facility] [address] [place] [address] Santana Hicks APRN, EDGER SAW OPERATOR [address] [place] [address] 02/23/2025 10:30 AM CDT Office Visit [facility] - Family [facility] [address] [place] [address] Stone Cano MD [address] [address] documented as of this encounter Visit Diagnoses Not on filedocumented in this encounter Additional Health Concerns Infection Onset Date Last Indicated Resolved Time COVID - 19 11/10/2023 11/10/2023 11/10/2023 12:3 1 PM CDT Assessment Noted Time PHQ-9 Depression Total Score: 0 08/19/19 21 9:04 AM DISPLAY CARD WRITER documented as of this encounter Care Teams Recreation Coordinator Relationship Specialty Start Date End Date Stone Cano MD [address] [address] PCP - General Family Medicine 06/03/15 Santana Hicks APRN, EDGER SAW OPERATOR [address] [place] [address] Nurse Practitioner Advanced Practice Nurse 06/06/22 Emiliano Dave MD [address] [place] [address] Consulting Physician Gastroenterology 09/07/22 documented as of this encounter
--- OUTSIDE RECORDS SUMMARY | 2025-01-14 07:49 | XMS_ITS | Clinical Summary ---
Author Organization [facility] [place] Address [address] [place] [address] Care Team Providers Care Artificial Pearl Maker Name Role Phone Stone Cano MD Primary Care Provider [phone] Stone Cano MD Unavailable [phone] Lisa Foss Unavailable [phone] Allergies No known active allergies Medications ALPRAZolam [...] (08/29/2019): Added automatically from request for surgery [id number] Anxiety 09/05/2018 Chronic midline low back pain [...] (08/15/2019): Added automatically from request for surgery [id number] Encounters Date Type Department Care Team Description 12/23/2024 11:30 AM CDT Office Visit [facility] Surgery [address] [facility] [address] [place] [address] Ashley Amor, GILDARDO Arthritis of carpometacarpal (CMC) joint of right thumb (Primary Dx) 11/05/2024 10:15 AM CDT Office Visit [facility] - [address] [place] [address] Lisa Mack DO Acute non-recurrent maxillary sinusitis (Primary Dx); Bilateral impacted cerumen; Chronic maxillary sinusitis; Nasal congestion from Last 3 Months Surgical History Surgery Date Site/Laterality Comments ROTATOR CUFF REPAIR Rotator cuff repair SHOULDER ARTHROSCOPY BACK SURGERY HAND SURGERY SPINE SURGERY L4-5 laminectomy HERNIA REPAIR umbilical hernia Medical History Medical History Date Comments Hyperlipidemia Hyperlipidemia Hx Other Medical Back pain Hx Other Medical Impotence Hypertension Hypertension Depression Depression Hypercholesteremia Hiatal hernia Gastric reflux GERD (gastroesophageal reflux disease) Cancer (HCC) skin ca Family History Medical History Relation Name Comments COPD Father Heart disease Mother Cancer Other 1 Family history of Cancer; Heart disease Other 2 Family history of Heart disease; Relation Name Status Comments Father Mother Other 1 Other 2 Social History Tobacco Use Types Packs/Day Years Used Date Smoking Tobacco: Never Smokeless Tobacco: Never Tobacco Cessation:Counseling Given: Not Answered Alcohol Use Standard Drinks/Week Comments Yes 0 (1 standard drink = 0.6 oz pur e alcohol) occasional Sex and Gender Information Value Date Recorded Sex Assigned at Not on file Legal Sex Male 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 CONVERTING 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 Gender Identity Not on file Sexual Orientation Not on file Obstetrics History Last Filed Vital Signs Vital Sign Reading Time Taken Comments Blood Pressure 143/73 11/05/2024 10:13 AM CDT Pulse 68 11/05/2024 10:13 AM CDT Temperature 37.1 C (98.7 F) 07/04/2021 4:24 PM CONVERTING OPERATOR Respiratory Rate 18 11/05/2024 10:13 AM CDT Oxygen Saturation 99% 11/05/2024 10:13 AM CDT Inhaled Oxygen Concentration - - Weight 85.3 kg (188 lb) 11/05/2024 10:13 AM CDT Height 167.6 cm (5' 5.98) 11/05/2024 10:13 AM C DT Body Mass Index 30.36 11/05/2024 10:13 AM CDT Plan of Treatment Health Maintenance Due Date Last Done Comments Depression Screening 1945 Fall Risk Assessment 1945 Hepatitis C Screening 1945 Hepatitis B Screening 1965 Zoster Vaccine (2 of 3) 09/10/2008 07/16/2008 Well Visit 65+ 2012 Pneumococcal vaccine 65+ (3 of 3 - PCV20 or PCV21) 06/15/2021 06/15/2016, 07/17/2012 Covid-19 Vaccine (3 - 2023-2 5 season) 2024 09/21/2020, 08/24/2020 Influenza Vaccine (#1) 2025 , 04/19/2023, 04/15/2020, Additional history exists DTaP/Tdap/Td Vaccine (4 - Td or Tdap) 03/10/2026 03/10/2016, 03/10/2016, 09/05/2011, Additional history exists Medical Devices Implanted Type Area Hydraulic Plumber Device Identifier Shelf Expiration Date Model / Serial / Lot Exactech 320-15-02 Superior Augment Glenoid 10d Plate Bone Average Shoulder System - [id number] - [id number] Implanted:Qty: 1 on 09/02/2019 by Wilmer Rebolledo MD at [facility] Right: Shoulder Exactech 06/10/2028 320-15-02 / [id number] / Exactech 320-15-05 Equinoxe Lock Reverse Shoulder Glenosphere Screw Bone - [id number] - [id number] Implanted:Qty: 1 on 09/02/2019 by Wilmer Rebolledo MD at [facility] Right: Shoulder Exactech 05/14/2024 320-15-05 / [id number] / Exactech 320-20-00 Reverse Torque Define Shoulder Kit Screw - [id number] - [id number] Implanted:Qty: 1 on 09/02/2019 by Wilmer Rebolledo MD at [facility] Right: Shoulder Exactech 07/21/2024 320-20-00 / [id number] / Exactech 320-20-38 Equinoxe 4.5mm 38mm Kit Compression Lock Cap Reverse Shoulder - [id number] - [id number] Implanted:Qty: 1 on 09/02/2019 by Wilmer Rebolledo MD at [facility] Right: Shoulder Exactech 10/23/2023 320-20-38 / [id number] / Exactech 320-20-30 Equinoxe 4.5mm 30mm Kit Compression Lock Cap Reverse Shoulder - [id number] - [id number] Implanted:Qty: 1 on 09/02/2019 by Wilmer Rebolledo MD at [facility] Right: Shoulder Exactech 09/12/2023 320-20-30 / [id number] / Exactech 320--42 Equinoxe 42mm Glenosphere Shoulder Component Glenoid - [id number] - [id number] Implanted:Qty: 1 on 09/02/2019 by Wilmer Rebolledo MD at [facility] Right: Shoulder Exactech 04/30/2029 320-01-42 / [id number] / Exactech 300-01-13 Equinoxe 13mm Press Fit Primary Shoulder Stem Humeral - [id number] - [id number] Implanted:Qty: 1 on 09/02/2019 by Wilmer Rebolledo MD at [facility] Right: Shoulder Exactech 01/01/2028 300-01-13 / [id number] / Exactech 320-10-00 Equinoxe Reverse Shoulder +0mm Tray Humeral Adapter - [id number] - [id number] Implanted:Qty: 1 on 09/02/2019 by Wilmer Rebolledo MD at [facility] Right: Shoulder Exactech 06/25/2029 320-10-00 / [id number] / Exactech 320-42-00 Equinoxe 42mm Reverse Shoulder +0mm Liner Humeral - [id number] - [id number] Implanted:Qty: 1 on 09/02/2019 by Wilmer Rebolledo MD at [facility] Right: Shoulder Exactech 05/18/2024 320-42-00 / [id number] / Procedures Procedure Name Priority Date/Time Associated Diagnosis Comments HI REMOVAL IMPACTED CERUMEN INSTRUMENTATION UNILAT Routine 11/05/2024 10:15 AM CDT Bilateral impacted cerumen from Last 3 Months Results * HI REMOVAL IMPACTED CERUMEN INSTRUMENTATION UNILAT (11/05/2024 10:15 [...] Result from Last 3 Months Insurance MEDICARE [facility] MEDICARE FOR LIFE MEDICARE FOR LIFE MEDICARE [facility] FOR LIFE Advance Directives For more information, please contact: [phone] * Full Code (Latest Code Status on File) Date Activated Date Inactivated Comments 09/02/2019 4:09 PM 09/03/2019 5:14 PM Care Teams Artificial Pearl Maker Relationship Specialty Start Date End Date Stone Cano MD [address] [facility] [address] [address] PCP - General 05/11/19 Stone Cano MD [address] [address] 05/11/19 Lisa Foss PA [address] [address] Physician Validation Architect Orthopedic Surgery 09/03/19
--- OUTSIDE RECORDS SUMMARY | 2025-01-14 07:49 | XMS_ITS | Encounter Summary ---
Author Organization [facility] Address [address] [place] [address] Phone Care Team Providers Care Bicycle Assembler Name Role Phone Stone Cano MD Primary Care Provider Santana Hicks APRN, DRAPERY WORKER Unavailable [phone] Emiliano Dave MD Unavailable [phone] Reason for Visit * Reason Comments Medication Refill Encounter Details Date Type Department Care Team (Late st Contact Info) Description 10/27/2023 Refill [facility] - Family Medicine [facility] [address] [place] [address] Stone Cano MD [address] [address] Medication Refill Social History Tobacco Use Types Packs/Day Years Used Date Smoking Tobacco: Never Smokeless Tobacco: Never Alcohol Use Standard Drinks/Week Comments Yes 0 (1 standard drink = 0.6 oz pur e alcohol) twice a week [facility] Utilities Answer Date Recorded In [...] How often do you attend chur or caodaism services? Patient declined 08/18/2023 Do you belong to any clubs o r organizations such as baptist groups, unions, fraternal or athletic groups, or [...] Total Score - Questions 1-9 0 11/2023 [facility] - Occupational Stress Questionnaire Answer Date [...] place to sleep or slept in a fci (including now)? No 08/18/2023 Education Answer Date [...] encounter Miscellaneous Notes * Telephone Encounter - Dinora Allred RN - 10/27/2023 3:06 PM CDT Medication(s) refilled and signed per [facility] Chronic Medication Refill Standing Order for Pediatricand Adult Patients. Requested Prescriptions Pending Prescriptions Disp Refills omeprazole (PriLOSEC) 20 MG CAPSULE DELAYED RELEASE [Pharmacy Med Name: OMEPRAZOLE DR FLORENTINO 20MG] 90Capsule 3 Sig: TAKE 1 CAPSULE DAILY Proton Pump Inhibitors Protocol Passed - 10/27/2023 8:51 AM Passed - Visit with relevant provider in past 12 months or upcoming 90 days Recent Visits Date Type Provider Dept 08/20/23 Office Visit Stone Cano MD [facility] 03/06/23 Office Visit Stone Cano MD [facility] Showing recent visits within past 365 days and meeting all other requirements Future Appointments No visits were found meeting these conditions. Showing future appointments within next 90 days and meeting all other requirements documented in this encounter Plan of Treatment Upcoming Encounters Date Type Department Care Team (Late st Contact Info) Description 01/19/2025 11:15 AM CDT Office Visit [facility] [address] [facility] [place] [address] Santana Hicks APRN, DRAPERY WORKER [address] [place] [address] 02/23/2025 10:30 AM CDT Office Visit [facility] - Family [facility] [address] [place] [address] Stone Cano MD [address] [address] documented as of this encounter Visit Diagnoses Not on filedocumented in this encounter Additional Health Concerns Infection Onset Date Last Indicated Resolved Time COVID - 19 11/10/2023 11/10/2023 11/10/2023 12:3 1 PM CDT Assessment Noted Time PHQ-9 Depression Total Score: 0 08/20/19 8:46 AM DIGITAL CAMPAIGN SPECIALIST documented as of this encounter Care Teams Bicycle Assembler Relationship Specialty Start Date End Date Stone Cano MD [address] [address] PCP - General Family Medicine 06/03/15 Santana Hicks APRN, DRAPERY WORKER [address] [place] [address] Nurse Practitioner Advanced Practice Nurse 06/06/22 Emiliano Dave MD [address] [place] [address] Consulting Physician Gastroenterology 09/07/22 documented as of this encounter
--- OUTSIDE RECORDS SUMMARY | 2025-01-14 07:49 | XMS_ITS | Encounter Summary ---
Author Organization [facility] Address [address] [place] [address] Phone Care Team Providers Care Transfer Station Operator Name Role Phone Stone Cano MD Primary Care Provider Santana Hicks APRN, NET DEVELOPER SOFTWARE ENGINEER C Unavailable [phone] Emiliano Dave MD Unavailable [phone] Reason for Visit * Reason Comments Medication Refill Encounter Details Date Type Department Care Team (Late st Contact Info) Description 12/17/[address] [facility] - Family Medicine [facility] [address] [place] [id number] Stone Cano MD [address] [address] Medication Refill Social History Tobacco Use Types Packs/Day Years Used Date Smoking Tobacco: Never Smokeless Tobacco: Never Alcohol Use Standard Drinks/Week Comments Yes 0 (1 standard drink = 0.6 oz pur e alcohol) twice a week [facility] Utilities Answer Date Recorded In the [...] How often do you attend chur or sabianism services? Patient declined 08/18/2023 Do you belong to any clubs o r organizations such as samaritan groups, unions, fraternal or athletic groups, or [...] Total Score - Questions 1-9 0 11/2023 [facility] - Occupational Stress Questionnaire Answer Date [...] place to sleep or slept in a alf (including now)? No 08/18/2023 Education Answer Date [...] Telephone Encounter - Ruth Smith RN - 12/17/2023 5:04 PM CDT Medication(s) refilled and signed per [facility] Chronic Medication Refill Standing Order for Pediatricand Adult Patients. Requested Prescriptions Pending Prescriptions Disp Refills chlorthalidone (HYGROTON) 25 MG Tablet [Pharmacy Med Name: CHLORTHALIDONE TABS 25MG] 90 Tablet 1 Sig: TAKE 1 TABLET DAILY Diuretics Protocol Passed - 12/17/2023 10:30 AM Passed - Serum potassium on record in past 12 months POTASSIUM Date Value Ref Range Status 11/10/2023 3.6 3.5 - 5.1 mmol/L Final Passed - Serum sodium on record in past 12 months SODIUM Date Value Ref Range Status 11/10/2023 135 (L) 136 - 145 mmol/L Final Passed - Blood pressure on record in past 12 months Clinician-entered: BP Readings from Last 3 Encounters: 11/19/23 173/80 11/10/23 128/74 08/20/23 142/82 Patient-entered: No data recorded Passed - Visit with relevant provider in past 12 months or upcoming 90 days Recent Visits Date Type Provider Dept 08/20/23 Office Visit Stone Cano MD [facility] 03/06/23 Office Visit Stone Cano MD [facility] Showing recent visits within past 365 days and meeting all other requirements Future Appointments Date Type Provider Dept 02/21/24 Appointment Stone Cano MD [facility] Showing future appointments within next 90 days and meeting all other requirements Passed - GFR on record in past 12 months GFR, EST. NONAFRICAN Date Value Ref Range Status 11/10/2023 57 (L) >=60 Final documented in this encounter Plan of Treatment Upcoming Encounters Date Type Department Care Team (Late st Contact Info) Description 01/19/2025 11:15 AM CDT Office Visit [facility] [address] [place] [address] Santana Hicks, STEELER, NET DEVELOPER SOFTWARE ENGINEER C [address] [place] [address] 02/23/2025 10:30 AM CDT Office Visit [facility] - Family Medicine [facility] [address] [place] [address] Stone Cano MD [address] [address] documented as of this encounter Visit Diagnoses Not on filedocumented in this encounter Additional Health Concerns Assessment Noted Time PHQ-9 Depression Total Score: 0 08/20/19 24 8:46 AM SURGICAL LEAD documented as of this encounter Care Teams Transfer Station Operator Relationship Specialty Start Date End Date Stone Cano MD #[address] [address] PCP - General Family Medicine 06/03/15 Santana Hicks APRN, NET DEVELOPER SOFTWARE ENGINEER C [address] [place] [address] Nurse Practitioner Advanced Practice Nurse 06/06/22 Emiliano Dave MD [address] [place] [address] Consulting Physician Gastroenterology 09/07/22 documented as of this encounter
--- OUTSIDE RECORDS SUMMARY | 2025-01-14 07:49 | XMS_ITS | Clinical Summary ---
Author Organization [facility] Address [address] [place] [address] Phone Care Team Providers Care Biblical Studies Professor Name Role Phone Stone Cano MD Primary Care Provider [phone] Santana Hicks APRN, PULL UP HAND Unavailable [phone] Emiliano Dave MD Unavailable [phone] Allergies No known active allergies Medications predniSONE (DELTASONE) 20 MG Tablet Take 1 Tablet by mouth daily. 3 po daily for 5 days 2 po dialy for 5 days One po daily for 5 days 30 Tablet 11/30/19 24 Active chlorthalidone (HYGROTON) 25 MG Tablet TAKE 1 TABLET DAILY 90 Tablet 3 06/18/20 24 Active simvastatin (ZOCOR) 20 MG Tablet TAKE 1 TABLET NIGHTLY 90 Tablet 1 08/15/19 25 Active ALPRAZolam (XANAX) 1 MG TabletIndicati ons:Anxiety TAKE 1 TABLET TWICE A DAY NEEDED FOR ANXIETY 180 Tablet 09/30/19 25 Active venlafaxine (EFFEXOR-XR) 150 MG CAPSULE SR 24 HR TAKE 1 CAPSULE DAILY 90 Capsule 1 10/07/19 25 Active amLODIPine (NORVASC) 5 MG Tablet TAKE 1 TABLET DAILY 90 Tablet 2 11/25/19 25 Active omeprazole (PriLOSEC) 20 MG CAPSULE DELAYED RELEASE TAKE 1 CAPSULE DAILY 90 Capsule 2 11/25/19 25 Active finasteride (PROSCAR) 5 MG Tablet Take 1 Tablet by mouth daily. 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 6 mL 1 12/16/19 25 025 Active tamsulosin (FLOMAX) 0.4 MG CapsuleIndicat ions:Benign non-nodular prostatic hyperplasia with lower urinary tract symptoms TAKE 1 CAPSULE EVERY MORNING 90 Capsule 3 01/07/20 25 Active terbinafine (LamISIL) 250 MG Tablet Take 1 Tablet by mouth daily for 56 days. 28 Tablet 1 01/09/20 25 025 Active tamsulosin (FLOMAX) 0.4 MG CapsuleIndicat ions:Benign non-nodular prostatic hyperplasia with lower urinary tract symptoms TAKE 1 CAPSULE EVERY MORNING 90 Capsule 3 12/13/19 24 025 Discontinued terbinafine (LamISIL) 250 MG Tablet Take 1 Tablet by mouth daily for 45 days. 45 Tablet 11/20/19 25 025 Active Problems Problem Noted Date Diagnosed Date Anxiety 09/05/2018 Chronic midline low back pain without sciatica 0 09/05/2018 Encounter for screening for pneumonia 02/28/2018 Hyperglycemia 12/21/2016 Borderline diabetes 12/21/2016 Elevated PSA 11/02/2016 Acute non-recurrent maxillary sinusitis 05/05/20 16 Benign non-nodular prostatic hyperplasia with lower urinary tract symptoms 03/23/2016 Memory loss 03/16/2016 Insomnia 03/16/2016 Colon cancer screening 03/15/2016 Memory deficit 01/06/2016 HTN (hypertension) 06/03/2015 Hyperlipemia 06/03/2015 Depression 06/03/2015 GERD (gastroesophageal reflux disease) 5 Low testosterone 06/03/2015 Hyperhydrosis disorder 06/03/2015 Encounters Date Type Department Care Team Description 01/06/2025 Refill [facility] [address] [place] [address] Santana Hicks, DEALMAKER, PULL UP HAND Medication Refill 12/15/2024 Telephone [facility] [address] [place] [id number] Santana Hicks APRN, PULL UP HAND 11/26/2024 Refill [facility] [address] [place] [address] Santana Hicks, DEALMAKER, PULL UP HAND Medication Refill 11/22/2024 Refill [facility] [address] [facility] [place] [address] Stone Cano MD Medication Refill from Last 3 Months Immunizations Immunization Administration Dates Next Due Covid-19, Mrna, Lnp-s, PF, 1 00 mcg/0.5 mL Dose (Moderna) 09/21/2020,08/24/2020 DTAP/HIB/IPV COMBINED VACCINE 03/10/2016 Influenza Vaccine 03/10/2016 Influenza Vaccine greater than 3 yrs 04/30/2014 Influenza Vaccine less than 3 yrs 03/10/2016 Influenza Vaccine, Quadrivalent, PF 04/11/2018,0 03/29/2017 Influenza Virus Vaccine, Whole Virus ,05/02/2002,06/18/2001,06/12,05/08/1999,05/16/1997 Influenza, High-dose, Quadrivalent 04/19/2023, Influenza, Quadrivalent, Adjuvanted 03/15/2022,1 Influenza, Seasonal, Injecta ble, Undefined 04/30/2014 Influenza, Trivalent, Adjuvanted, PF 04/29/2019 Influenza, high-dose, trivalent, PF 03/05/2024,1 ,04/27/2015 OPV 12/14/1963 PUR PCV-13 06/15/2016 Pneumococcal Vaccine - 13 Valent 06/15/2016 Pneumococcal Vaccine Adult - 23 Valent 3 Pneumococcal conjugate PCV20 , polysaccharide [id number] conjugate, adjuvant, PF 02/28/2022 RSV, Recombinant, Protein Saavedra bunit Rsvpref, Adjuvant Recon (Arexvy) 03/05/2024 TB Skin Test 08/10/2015 TDAP Vaccine 03/10/2016,09/05/2011 Tetanus Toxoid, Unspecified Formulation 08/16/2011 Tuberculin Skin Test; Nata ed Protein Derivative Solutiol 03/29/2002,05/04/2001,05/05/2000 Typhoid Vaccine 04/29/2007,05/06/2005,05/08/2003 Yellow Fever Vaccine 07/16/1995 Zoster Vaccine, live 07/16/2008 Family History Medical History Relation Name Comments Congestive Heart Failure Father Heart Attack Father Hypertension Father Cancer Mother stomach Colon Cancer Paternal Aunt Relation Name Status Comments Father Mother Paternal Aunt Sister Social History Tobacco Use Types Packs/Day Years Used Date Smoking Tobacco: Never Smokeless Tobacco: Never Tobacco Cessation:Counseling Given: Not Answered Alcohol Use Standard Drinks/Week Comments Yes 0 (1 standard drink = 0.6 oz pur e alcohol) twice a week [facility] Tuniuities Answer Date Recorded In the past 12 months has [employer], gas, oil, or water [employer] threatened to shut off services in your home? No 08/16/2024 Social Connection and Isolation Panel Answer Date Recorded In a typical week, how many times do you talk on the phone with family, friends, or neighbors? More than three times a week 08/16/2024 How often do you get togethe r with friends or relatives? Once a week 08/16/2024 How often do you attend [facility] ch or methodist services? Never 08/16/2024 Do you belong to any clubs o r organizations such as confucianist groups, unions, fraternal or athletic groups, or school groups? No 08/16/2024 How often do you attend meet ings of the clubs or organizations you belong to? Never 08/16/2024 Are you , , di vorced, , never , or living with a partner? 08/16/2024 AUDIT-C Answer Date Recorded Q1: How often do you have a drink containing alc ohol? 2-4 times a month 08/16/2024 Q2: How many drinks containi ng alcohol do you have on a typical day when you are drinking? 3 or 4 08/16/2024 Q3: How often do you have si x or more drinks on one occasion? Patient declined 08/16/2024 Overall Financial Resource Strain (CARDIA) Answe r Date Recorded How hard is it for you to pa y for the very basics like food, housing, medical care, and heating? Not hard at all 08/16/2024 PHQ-2 Answer Date Recorded Total Score - Questions 1-9 0 02/2024 [facility] - Occupational Stress Questionnaire Answer Date Recorded Do you feel stress - tense, restless, nervous, or anxious, or unable to sleep at night because your mind is troubled all the time - these days? Rather much 08/16/2024 Exercise Vital Sign Answer Date Recorde d On average, how many days pe r week do you engage in moderate to strenuous exercise (like a brisk walk)? Patient declined On average, how many minutes do you engage in exercise at this level? Patient declined 08/16/2024 Hunger Vital Sign Answer Date Recorded Within the past 12 months, y ou worried that your food would run out before you got the money to buy more. Never true 08/16/19 Within the past 12 months, t he food you bought just didn't last and you didn't have money to get more. Never true 08/16/2024 PRAPARE - Transportation Answer Date Re corded In the past 12 months, has l ack of transportation kept you from medical appointments or from getting medications? No 07/2024 In the past 12 months, has l ack of transportation kept you from meetings, work, or from getting things needed for daily living? No 08/16/2024 Housing Stability Vital Sign Answer Shaun e [...] in a fci (including now)? No 08/18/2023 Housing Stability Vital Sign Answer Shaun e Recorded In the last 12 months, was t here a time when you were not able to pay the mortgage or rent on time? No 08/16/19 Number of Times Moved in the Last Year Not on fi le 08/16/2024 At any time in the past 12 m [facility], were you homeless or living in a fci (including now)? Patient declined 08/16/2024 Education Answer Date Recorded What is the [...] Sign Reading Time Taken Comments Blood Pressure 148/78 10/13/2024 11:02 AM CDT Pulse 62 10/13/2024 11:02 AM CDT Temperature 36 C (96.8 F) 08/18/2024 8:56 AM COLOR FINISHER Respiratory Rate 18 10/13/2024 11:02 AM CDT Oxygen Saturation 98% 10/13/2024 11:02 AM CDT Inhaled Oxygen Concentration - - Weight 85.7 kg (189 lb) 10/13/2024 11:02 AM CDT Height 167.6 cm (5' 6) 10/13/2024 11:02 AM CDT Body Mass Index 30.51 10/13/2024 11:02 AM CDT Plan of Treatment Upcoming Encounters Date Type Department Care Team (Late st Contact Info) Description 01/19/2025 11:15 AM CDT Office Visit [facility] [address] [place] [phone] Santana Hicks, DEALMAKER, PULL UP HAND [address] [place] [address] 02/23/2025 10:30 AM CDT Office Visit [facility] [address] [place] [address] Stone Cano MD [address] [address] Health Maintenance Due Date Last Done Comments Zoster Immunization (2 of 3) 09/10/2008 07/16/2008 SARS-COV-2 Immunization ( season) 2024 05/10/2021, 09/21/2020, 08/24/2020 Td Immunization Every 10 Years (Adults With 1 Tdap) 03/10/2026 03/10/2016, 09/05/2011 Hepatitis C Virus (HCV) Screening Completed 09/16/2020, 09/03/2017 Pneumococcal Immunization (50+ years) Completed 02/28/2022, 06/15/2016, 06/15/2016, Additional history exists Pneumococcal Immunization Combined Discontinued 02/28/2022, 06/15/2016, 06/15/2016, Additional history exists Colonoscopy Discontinued 08/16/2023, 10/14, 09/06/2016 Colorectal Cancer Screening Discontinued Influenza Immunization Completed , 04/19/2023, 04/19/2023, Additional history exists Respiratory Syncytial Virus (RSV) Immunization (Adult) Completed 03/05/2024 Cologuard Discontinued Hepatitis B Immunization Aged Out No longer eligible based on patient's age to complete this topic Human Papillomavirus (HPV) Immunization Aged Out No longer eligible based on patient's age to complete this topic Immunochemical Fecal Occult Blood Discontinued Meningococcal Immunization (ACWY) Aged Out No longer eligible based on patient's age to complete this topic Rotavirus Immunization Aged Out No lo nger eligible based on patient's age to complete this topic Procedures Procedure Name Priority Date/Time Associated Diagnosis Comments DERMATOLOGY CONSULT 12/01/2024 1 2:00 AM CDT HEPATITIS C ANTIBODY Routine 09/03/2017 10:11 AM COLOR FINISHER Essential hypertension Hyperlipidemia, unspecified hyperlipidemia type Gastroesophageal reflux disease without esophagitis from Last 3 Months or Most Recently Relevant to Health Maintenance Results * DERMATOLOGY CONSULT (12/01/2024 12:00 AM CDT) 12/01/2024 us Provider Scan GENERIC SCAN ORDERS CONSULT Raisa saavedra Result SCAN * HEPATITIS C ANTIBODY (09/03/2017 10:11 AM COLOR FINISHER) hepatitis C antibody 0.10 <1 S/CO 09/03/2017 11:07 PM COLOR FINISHER [facility] Comment: Signal/Cutoff ratio < 0.79 is Nondetected Signal/Cutoff ratio 0.80-0.99 is Grayzone Signal/Cutoff ratio > 0.99 is Detected Supplemental assays are recommended if signal/cutoff ratio is >/=1.00. Signal/cutoff ratio result >/= 5.00 is 97% predictive of positivity for recombinant immunoblot assay (RIBA) and will be reported to the [place] Department of Public Health as required. Blood specimen (specimen) Venipuncture / Unknown 09/03/2017 10:11 AM COLOR FINISHER 09/03/2017 10:11 AM COLOR FINISHER us Stone Cano MD CHEMISTRY ORDERABLES Final Re sult [facility] [address] [place] [address], [place] from Last 3 Months or Most Recently Relevant to Health Maintenance Insurance MEDICARE [employer] Care Teams Biblical Studies Professor Relationship Specialty Start Date End Date Stone Cano MD [address] [address] PCP - General Family Medicine 06/03/15 Santana Hicks APRN, PULL UP HAND [address] [place] [address] Nurse Practitioner Advanced Practice Nurse 06/06/22 Emiliano Dave MD [address] [place] [address] Consulting Physician Gastroenterology 09/07/22
--- OUTSIDE RECORDS SUMMARY | 2025-01-14 07:49 | XMS_ITS | Encounter Summary ---
Author Organization [facility] Address [address] [place] [address] Phone Care Team Providers Care Associate Dean Name Role Phone Stone Cano MD Primary Care Provider [phone] Santana Hicks APRN, FURNITURE TECHNICIAN Unavailable [phone] Emiliano Dave MD Unavailable [phone] Reason for Visit * Reason Comments Medication Refill Encounter Details Date Type Department Care Team (Late st Contact Info) Description 09/26/2023 Refill [facility] [address] [place] [address] Stone Cano MD [address] [address] Medication Refill Social History Tobacco Use Types Packs/Day Years Used Date Smoking Tobacco: Never Smokeless Tobacco: Never Alcohol Use Standard Drinks/Week Comments Yes 0 (1 standard drink = 0.6 oz pur e alcohol) twice a week [facility] Utilities Answer Date Recorded In the [...] How often do you attend chur or jew services? Patient declined 08/18/2023 Do you belong to any clubs o r organizations such as caodaism groups, unions, fraternal or athletic groups, or [...] Total Score - Questions 1-9 0 11/2023 [facility] - Occupational Stress Questionnaire Answer Date [...] place to sleep or slept in a snf (including now)? No 08/18/2023 Education Answer Date [...] Telephone Encounter - Ruth Smith RN - 09/27/2023 9:43 AM CDT Medication failed the protocol, provider to review and approve the medication order if appropriate. Requested Prescriptions Pending Prescriptions Disp Refills amLODIPine (NORVASC) 5 MG Tablet [Pharmacy Med Name: AMLODIPINE BESYLATE TABS 5MG] 90 Tablet 3 Sig: TAKE 1 TABLET DAILY Calcium-Channel Blockers Protocol Passed - 09/26/2023 4:03 PM Passed - BP on record in the past year Clinician-entered: BP Readings from Last 3 Encounters: 08/20/23 142/82 03/06/23 134/78 01/09/23 150/88 Patient-entered: No data recorded Passed - Visit [...] 90 days and meeting all other requirements venlafaxine (EFFEXOR-XR) 150 MG CAPSULE SR 24 HR [Pharmacy Med Name: VENLAFAXINE HCL ER CAPS 150MG]90 Capsule 3 Sig: TAKE 1 CAPSULE DAILY SNRI (6 Month Refill Only) Protocol Failed - 09/26/2023 4:03 PM Failed - Has an encounter in the past 6 months with a depression or anxiety visit diagnosis Passed - Visit with relevant provider in past 6 months or upcoming 90 days Recent Visits Date Type Provider Dept 08/20/23 Office Visit Stone Cano MD [facility] Showing recent visits within past 182 days and meeting all other requirements Future Appointments No visits were found meeting these conditions. Showing future appointments within next 90 days and meeting all other requirements Passed - Patient has established therapy with Serotonin-Norepinephrine Reuptake Inhibitors for at least 6 months documented in this encounter Plan of Treatment Upcoming Encounters Date Type Department Care Team (Late st Contact Info) Description 01/19/2025 11:15 AM CDT Office Visit [facility] [address] [place] [address] Santana Hicks APRN, FURNITURE TECHNICIAN [address] [place] [address] 02/23/2025 10:30 AM CDT [facility] [address] [place] [address] Stone Cano MD [address] [address] documented as of this encounter Visit Diagnoses Not on filedocumented in this encounter Additional Health Concerns Infection Onset Date Last Indicated Resolved Time COVID - 19 11/10/2023 11/10/2023 11/10/2023 12:3 1 PM CDT Assessment Noted Time PHQ-9 Depression Total Score: 0 02/05/20 24 8:46 AM HAND COREMAKER documented as of this encounter Care Teams Associate Dean Relationship Specialty Start Date End Date Stone Cano MD [address] [address] PCP - General Family Medicine 06/03/15 Santana Hicks APRN, FURNITURE TECHNICIAN [address] [place] [address] Nurse Practitioner Advanced Practice Nurse 06/06/22 Emiliano Dave MD [address] [place] [address] Consulting Physician Gastroenterology 09/07/22 documented as of this encounter
--- OUTSIDE RECORDS SUMMARY | 2025-01-14 07:49 | XMS_ITS | Encounter Summary ---
Author Organization [facility] Address [address] [place] [address] Phone Care Team Providers Care Senior Ui Web Developer Name Role Phone Stone Cano MD Primary Care Provider [phone] Santana Hicks APRN, BRICK CATCHER Unavailable [phone] Emiliano Dave MD Unavailable [phone] Reason for Visit * Reason Comments Medication Refill Encounter Details Date Type Department Care Team (Late st Contact Info) Description 08/06/2022 Refill [facility] [address] [place] [phone] Stone Cano MD [address] [address] Medication Refill Social History Tobacco Use Types Packs/Day Years Used Date Smoking Tobacco: Never Smokeless Tobacco: Never Alcohol Use Standard Drinks/Week Comments Yes 0 (1 standard drink = 0.6 oz pur e alcohol) twice a week PHQ-2 Answer Date Recorded Total Score - Questions 1-9 0 08/16 Sexually Active Control Partners Comments Yes Female Sex and Gender Information Value Date Recorded Sex Assigned at Not on file Legal Sex Male 8:44 PM CDT Gender Identity Not on file Sexual Orientation Not on file COVID-19 Exposure Response Date Recorded In the last 10 days, have brennen lopez been in contact with someone who was confirmed or suspected to have Coronavirus/COVID-19? No / Unsure 2022 10:11 AM BLOWER MECHANIC documented as of this encounter Miscellaneous Notes * Telephone Encounter - Luis Ruth L, RN - 08/07/2022 11:54 AM CST PDMP Alprazolam 05/12/22 - 90 days Medication failed the protocol, provider to review and approve the medication order if appropriate. Requested Prescriptions Pending Prescriptions Disp Refills amLODIPine (NORVASC) 5 MG Tablet [Pharmacy Med Name: AMLODIPINE BESYLATE TABS 5MG] 90 Tablet 1 Sig: TAKE 1 TABLET DAILY Calcium-Channel Blockers Protocol Passed - 08/06/2022 11:54 AM Passed - BP on record in the past year Clinician-entered: BP Readings from Last 3 Encounters: 06/06/22 140/88 03/09/22 172/86 02/28/22 128/78 Patient-entered: No data recorded Passed - Visit with relevant provider in past 12 months or upcoming 90 days Recent Visits Date Type Provider Dept 02/28/22 Office Visit Sotne Cano MD [facility] 08/31/21 Office Visit Stone Cano MD [facility] Showing recent visits within past 365 days and meeting all other requirements Future Appointments Date Type Provider Dept 09/05/22 Appointment Stone Cano MD [facility] Showing future appointments within next 90 days and meeting all other requirements ALPRAZolam (XANAX) 1 MG Tablet [Pharmacy Med Name: ALPRAZOLAM TABS 1MG] 180 Tablet 0 Sig: TAKE 1 TABLET TWICE A DAY NEEDED FOR ANXIETY Not Delegated - Benzodiazepines Protocol Failed - 08/06/2022 11:54 AM Failed - This refill cannot be delegated Passed - Visit with relevant provider in past 12 months or upcoming 90 days Recent Visits Date Type Provider Dept 02/28/22 Office Visit Stone Cano MD [facility] 08/31/21 Office Visit Stone Cano MD [facility] Showing recent visits within past 365 days and meeting all other requirements Future Appointments Date Type Provider Dept 09/05/22 Appointment Stone Cano MD [facility] Showing future appointments within next 90 days and meeting all other requirements ER MECHANIC documented in this encounter Plan of Treatment Upcoming Encounters Date Type Department Care Team (Late st Contact Info) Description 01/19/2025 11:15 AM CDT Office Visit [facility] [address] [place] [address] Santana Hicks APRN, BRICK CATCHER [address] [place] [address] 02/23/2025 10:30 AM CDT [facility] #[address] [place] [address] Stone Cano MD [address] [address] documented as of this encounter Visit Diagnoses Diagnosis Anxiety Anxiety state, unspecified documented in this encounter Additional Health Concerns Infection Onset Date Last Indicated Resolved Time COVID - 19 11/10/2023 11/10/2023 11/10/2023 12:3 1 PM CDT Assessment Noted Time PHQ-9 Depression Total Score: 0 08/31/19 22 9:00 AM BLOWER MECHANIC documented as of this encounter Care Teams Senior Ui Web Developer Relationship Specialty Start Date End Date Stone Cano MD [address] [address] PCP - General Family Medicine 06/03/15 Santana Hicks APRN, BRICK CATCHER [address] [place] [address] Nurse Practitioner Advanced Practice Nurse 06/06/22 Emiliano Dave MD [address] [place] [address] Consulting Physician Gastroenterology 09/07/22 documented as of this encounter
--- OUTSIDE RECORDS SUMMARY | 2025-01-14 07:49 | XMS_ITS | Encounter Summary ---
Author Organization [facility] Address [address] [place] [address] Phone Care Team Providers Care Freight Router Name Role Phone Stone Cano MD Primary Care Provider Santana Hicks APRN, COOLING TOWER TECHNICIAN Unavailable [phone] Emiliano Dave MD Unavailable [phone] Reason for Visit * Reason Comments Medication Refill Encounter Details Date Type Department Care Team (Late st Contact Info) Description 05/29/2023 [facility]ill [facility] #2 [place] [id number] Stone Cano MD [address] [address] Medication Refill Social History Tobacco Use Types Packs/Day Years Used Date Smoking Tobacco: Never Smokeless Tobacco: Never Alcohol Use Standard Drinks/Week Comments Yes 0 (1 standard drink = 0.6 oz pur e alcohol) twice a week PHQ-2 Answer Date Recorded Total Score - Questions 1-9 0 08/17 Education Answer Date Recorded What is the [...] Telephone Encounter - Ruth Smith RN - 05/29/2023 1:50 PM CST PDMP 02/22/23 - 90 days Medication failed the protocol, provider to review and approve the medication order if appropriate. Requested Prescriptions Pending Prescriptions Disp Refills ALPRAZolam (XANAX) 1 MG Tablet [Pharmacy Med Name: ALPRAZOLAM TABS 1MG] 180 Tablet 0 Sig: TAKE 1 TABLET TWICE A DAY NEEDED FOR ANXIETY Not Delegated - Benzodiazepines Protocol Failed - 05/29/2023 10:36 AM Failed - This refill cannot be delegated Passed - Visit with relevant provider in past 12 months or upcoming 90 days Recent Visits Date Type Provider Dept 03/06/23 Office Visit Stone Cano MD [facility] 09/05/22 Office Visit Stone Cano MD [facility] Showing recent visits within past 365 days and meeting all other requirements Future Appointments No visits were found meeting these conditions. Showing future appointments within next 90 days and meeting all other requirements TESTER documented in this encounter Plan of Treatment Upcoming Encounters Date Type Department Care Team (Late st Contact Info) Description 01/19/2025 11:15 AM CDT Office Visit [facility] #2 [place] [address] Santana Hicks, CASINO GAMING WORKER, COOLING TOWER TECHNICIAN [address]2 [place] [address] 02/23/2025 10:30 AM CDT Office Visit [facility] - Family Medicine - [place] [address]2 [place] [address] Stone Cano MD #[address] [address] documented as of this encounter Visit Diagnoses Diagnosis Anxiety Anxiety state, unspecified documented in this encounter Additional Health Concerns Infection Onset Date Last Indicated Resolved Time COVID - 19 11/10/2023 11/10/2023 11/10/2023 12:3 1 PM CDT Assessment Noted Time PHQ-9 Depression Total Score: 0 09/05/19 23 8:00 AM PAIL TESTER documented as of this encounter Care Teams Freight Router Relationship Specialty Start Date End Date Stone Cano MD #[address] [address] PCP - General Family Medicine 06/03/15 Santana Hicks APRN, JOSE [address]2 [place] [address] Nurse Practitioner Advanced Practice Nurse 06/06/22 Emiliano Dave MD [address]2 [place] [address] Consulting Physician Gastroenterology 09/07/22 documented as of this encounter
--- OUTSIDE RECORDS SUMMARY | 2025-01-14 07:49 | XMS_ITS | Clinical Summary ---
Author Organization [facility] Address [address] [place] [address] Care Team Providers Care Plodding Machine Operator Name Role Phone Stone Cano MD Primary Care Provider [phone] Allergies No known active allergies Medications ALPRAZolam (XANAX) 1 MG tablet Take 1 tablet (1 mg total) by mouth nightly as needed. 05/29/2023 Active amLODIPine (NORVASC) 5 MG tablet Take 1 tablet (5 mg total) by mouth daily. 04/09/2023 Active chlorthalidone (HYGROTEN) 25 MG tablet Take 1 tablet (25 mg total) by mouth daily. 12/06/2022 Active omeprazole (PRILOSEC) 20 MG capsule Take 1 capsule (20 mg total) by mouth daily. Active finasteride (PROSCAR) 5 MG tablet Take 1 tablet (5 mg total) by mouth daily. 07/27/2023 Active simvastatin (ZOCOR) 20 MG tablet Take 1 tablet (20 mg total) by mouth daily. 07/27/2023 Active tamsulosin (FLOMAX) 0.4 MG Cap Take 1 capsule (0.4 mg total) by mouth daily. 11/07/2022 Active XYOSTED 75 MG/0.5ML Solution Auto-injector 75 mg. 06/29/2023 Activ e venlafaxine XR (EFFEXOR-XR) 150 MG 24 hr capsule Take 1 capsule (150 mg total) by mouth daily. 09/05/2022 Active Active Problems Problem Noted Date Diagnosed Date Family history of colon cancer 07/30/2023 Adenomatous polyp of colon, unspecified part of colon 07/30/2023 Change in bowel function 07/30/2023 GERD (gastroesophageal reflux disease) Family History Medical History Relation Comments Heart Disease Father Colon Cancer Mother Relation Status Comments Father Mother Social History Tobacco Use Types Packs/Day Years Used Date Smoking Tobacco: Never Tobacco Cessation:Counseling Given: Not Answered Alcohol Use Standard Drinks/Week Comments Not Asked 0 (1 standard drink = 0.6 oz pur e alcohol) Social Sex and Gender Information Value Date Recorded Sex Assigned at Not on file Legal Sex Male 10:38 AM CIVIL ENGINEERING PROJECT MANAGER Gender Identity Not on file Sexual Orientation Not on file Last Filed Vital Signs Vital Sign Reading Time Taken Comments Blood Pressure 141/98 08/16/2023 11:20 AM CIVIL ENGINEERING PROJECT MANAGER Pulse 54 08/16/2023 11:10 AM CIVIL ENGINEERING PROJECT MANAGER Temperature 36.5 C (97.7 F) 08/16/2023 10:55 AM CIVIL ENGINEERING PROJECT MANAGER Respiratory Rate 18 08/16/2023 11:03 AM CIVIL ENGINEERING PROJECT MANAGER Oxygen Saturation 99% 08/16/2023 11:20 AM CIVIL ENGINEERING PROJECT MANAGER Inhaled Oxygen Concentration - - Weight 90.7 kg (200 lb) 08/13/2023 11:21 AM CIVIL ENGINEERING PROJECT MANAGER Height 167.6 cm (5' 6) 07/30/2023 10:23 AM CIVIL ENGINEERING PROJECT MANAGER Body Mass Index 32.28 07/30/2023 10:23 AM CIVIL ENGINEERING PROJECT MANAGER Plan of Treatment Health Maintenance Due Date Last Done Comments Hepatitis C 1963 Zoster Vaccines (2 of 3) 09/10/2008 07/16/2008 Annual Medicare Wellness Visit 2012 RSV Immunization or 60+ Years (1 - 1-dose 75+ series) 2022 COVID-19 Vaccine (4 - season) 2024 05/10/2021, 09/21/2020, 08/24/2020 PHQ-2 (Physician Venetie Ira) 07/16/2024 DTaP, Tdap and Td Vaccines (4 - Td or Tdap) 03/10/2026 03/10/2016, 03/10/2016, 09/05/2011, Additional history exists Pneumococcal Vaccine: 50+ Years Completed 02/28/2022, 06/15/2016, 07/17/2012 Colorectal Cancer Screening Colonoscopy (10 Years) Discontinued 08/16/2023, 08/16/2023 Meningococcal B Vaccine Aged Out No l onger eligible based on patient's age to complete this topic Meningococcal Vaccine Aged Out No leticia husam eligible based on patient's age to complete this topic RSV Immunizations Under 20 Months Aged Out No longer eligible based on patient's age to complete this topic Medical Devices Implanted Type Area Dairy Hand Device Identifier Shelf Expiration Date Model / Serial / Lot Shoulder Components Shoulder Components Procedures Procedure Name Priority Date/Time Associated Diagnosis Comments COLONOSCOPY Routine 08/16/2023 9:50 AM CIVIL ENGINEERING PROJECT MANAGER from Last 3 Months or Most Recently Relevant to Health Maintenance Insurance MEDICARE [facility] Care Teams Plodding Machine Operator Relationship Specialty Start Date End Date Stone Cano MD [address] [address] PCP - General 07/27/23
== END 2025-01-14 07:48 | disposition home or self-care (01) ==
PROVIDERS: PCP Internal Medicine; Visit Provider Otolaryngology
DX: H90.3 Sensorineural hearing loss, bilateral (principal); H92.09 Otalgia, unspecified ear; H93.13 Tinnitus, bilateral; J01.01 Acute recurrent maxillary sinusitis; J32.2 Chronic ethmoidal sinusitis
CPT/HCPCS: 92557; 92567

== ENCOUNTER 2025-01-20 15:39 | Outpatient (CLI) | payer MEDICARE, OTHER, SELFPAY ==
--- NOTE | ~2025-01-20 | CT_ITS ---
EXAMINATION: CT sinus wo con DATE: 01/20/2025 16:14 INDICATION: Acute recurrent maxillary sinusitis TECHNIQUE: Computed tomography (CT) of the paranasal sinuses was performed without intravenous contra st. The dose-length product was 223.41 mGy-cm. Automated exposure control and iterative reconstructio n technique were employed. COMPARISON: None FINDINGS: The paranasal sinuses and mastoids are pneumatized. No significant mucosal thickening. No m ucoperiosteal reaction. Ostiomeatal units are patent. No significant nasal septal deviation. Mastoids are pneumatized. There is mild intracranial atherosclerosis. No midline shift. IMPRESSION: 1. No significant sinus disease. Reviewed, dictated and finalized at location A.
--- OUTSIDE RECORDS SUMMARY | 2025-01-20 15:44 | XMS_ITS | Clinical Summary ---
Author Organization [facility] Address [address] [facility] [place] [place] [address] Care Team Providers Care Sow Farm Manager Name Role Phone Stone Cano MD Primary Care Provider [phone] Source Comments [facility],non-owned Affiliates and Associated Physician Practices is amultiple site organization consisting of ambulatory clinics and hospital sitesin [place], [place], [place] and [place]. This disclosure is being madepursuant to the Care Everywhere program and may not contain all information available regarding this patient. Last updated 18.[facility] Network18 Social History Tobacco Use Types Packs/Day Years Used Date Smoking Tobacco: Never Assessed Sex and Gender Information Value Date Recorded Sex Assigned at Not on file Legal Sex Male 5:56 AM SAMPLER TESTER Gender Identity Not on file Sexual Orientation [...] 2024 08/24/2020 DEPRESSION SCREENING 07/16/2024 INFLUENZA VACCINE (#1) 2025 9, 04/11/2018, 03/29/2017, Additional history exists HEPATITIS B [...] age to complete this topic Insurance MEDICARE [facility] Address: [address] [place] [address] MEDICARE Care Teams Sow Farm Manager Relationship Specialty Start Date End Date Stone Cano MD PCP - General 03/07/18
--- OUTSIDE RECORDS SUMMARY | 2025-01-20 15:44 | XMS_ITS | Encounter Summary ---
Author Organization [facility] Address [address] [place] [address] Phone Care Team Providers Care Model And Mold Maker Name Role Phone Stone Cano MD Primary Care Provider Santana Hicks APRN, GENERAL LITHOGRAPHIC WORKER Unavailable [phone] Emiliano Dave MD Unavailable [phone] Reason for Visit * Reason Comments Medication Refill Encounter Details Date Type Department Care Team (Late st Contact Info) Description 04/27/2020 Refill [facility] [address]2 [place] [address] Stone Cano MD #[address] [address] Medication Refill Social History Tobacco Use Types [...] Outpatient Visits 5 months ago Essential hypertension [facility] Stone Simon MD 8 months ago [facility], GENERAL LITHOGRAPHIC WORKER 11 months ago Anxiety [facility] Stone Simon MD 1 year ago Essential hypertension [facility] Stone Simon MD 1 year ago Essential hypertension [facility] Stone Simon MD Upcoming Appointments Future Appointments In 1 month Stone Can[facility] MD [facility] Canelo Garcia MD [facility], [facility] INTERNET MERCHANT - Recent and Past Visits Recent Visits Date Type Provider Dept 11/27/19 Telemedicine Stone Cano MD [facility] 08/22/19 Office Visit Missy Hidalgo AP[facility] 05/15/19 Office Visit Stone Can[facility] MD [facility] Showing recent visits within past 460 days with a meds authorizing provider and meeting all other requirements Future Appointments Date Type Provider Dept 06/03/20 Appointment Stone Cano MD [facility] Showing future appointments within next 90 days with a meds authorizing provider and meeting all other requirements documented in this encounter Plan of Treatment Upcoming Encounters Date Type Department Care Team (Late st Contact Info) Description 02/23/2025 10:30 AM CDT Office Visit [facility] #2 [facility] [place] [address] Stone Cano MD #[address] [address] 04/21/2025 11:15 AM CDT Office Visit [facility] #2 [place] [address] Santana Hicks APRN, GENERAL LITHOGRAPHIC WORKER [address] [place] [address] documented as of this encounter Visit Diagnoses Not on filedocumented in this encounter Additional Health Concerns Infection Onset Date Last Indicated Resolved Time COVID - 19 06/08/2020 06/08/2020 06/28/2020 12:1 8 AM SIMULATION SPECIALIST COVID - 19 11/10/2023 11/10/2023 11/10/2023 12:3 1 PM CDT Assessment Noted Time PHQ-9 Depression Total Score: 0 08/22/19 8:59 AM SIMULATION SPECIALIST documented as of this encounter Care Teams Model And Mold Maker Relationship Specialty Start Date End Date Stone Cano MD #[address] [address] PCP - General Family Medicine 06/03/15 Santana Hicks APRN, GENERAL LITHOGRAPHIC WORKER [address] [place] [address] Nurse Practitioner Advanced Practice Nurse 06/06/22 Emiliano Dave MD [address] [place] [address] Consulting Physician Gastroenterology 09/07/22 documented as of this encounter
--- OUTSIDE RECORDS SUMMARY | 2025-01-20 15:44 | XMS_ITS | Clinical Summary ---
Author Organization [facility] Address [address] [place] [address] Care Team Providers Care Electrical Prospecting Engineer Name Role Phone Stone Cano MD Primary Care Provider [phone] Allergies No known active allergies Medications ALPRAZolam [...] on file Legal Sex Male 10:38 AM DIRECTOR OF PLANNING Gender Identity Not on file Sexual Orientation Not on file Last Filed Vital Signs Vital Sign Reading Time Taken Comments Blood Pressure 141/98 08/16/2023 11:20 AM DIRECTOR OF PLANNING Pulse 54 08/16/2023 11:10 AM DIRECTOR OF PLANNING Temperature 36.5 C (97.7 F) 08/16/2023 10:55 AM DIRECTOR OF PLANNING Respiratory Rate 18 08/16/2023 11:03 AM DIRECTOR OF PLANNING Oxygen Saturation 99% 08/16/2023 11:20 AM DIRECTOR OF PLANNING Inhaled Oxygen Concentration - - Weight 90.7 kg (200 lb) 08/13/2023 11:21 AM DIRECTOR OF PLANNING Height 167.6 cm (5' 6) 07/30/2023 10:23 AM DIRECTOR OF PLANNING Body Mass Index 32.28 07/30/2023 10:23 AM DIRECTOR OF PLANNING Plan of Treatment Health Maintenance Due Date Last Done Comments Hepatitis C 1963 Zoster Vaccines (2 of 3) 09/10/2008 07/16/2008 Annual Medicare Wellness Visit 2012 RSV Immunization or 60+ Years (1 - 1-dose 75+ series) 2022 COVID-19 Vaccine (4 - season) 2024 05/10/2021, 09/21/2020, 08/24/2020 PHQ-2 (Physician Native) 07/16/2024 DTaP, Tdap and Td Vaccines (4 - Td or Tdap) 03/10/2026 03/10/2016, 03/10/2016, 09/05/2011, Additional history exists Pneumococcal Vaccine: 50+ Years Completed 02/28/2022, 06/15/2016, 07/17/2012 Colorectal Cancer Screening Colonoscopy (10 Years) Discontinued 08/16/2023, 08/16/2023 Meningococcal B Vaccine Aged Out No l onger eligible based on patient's age to complete this topic Meningococcal Vaccine Aged Out No leticia hsuam eligible based on patient's age to complete this topic RSV Immunizations Under 20 Months Aged Out No longer eligible based on patient's age to complete this topic Medical Devices Implanted Type Area Auto Design Detailer Device Identifier Shelf Expiration Date Model / Serial / Lot Shoulder Components Shoulder Components Procedures Procedure Name Priority Date/Time Associated Diagnosis Comments COLONOSCOPY Routine 08/16/2023 9:50 AM DIRECTOR OF PLANNING from Last 3 Months or Most Recently Relevant to Health Maintenance Insurance MEDICARE [facility] Care Teams Electrical Prospecting Engineer Relationship Specialty Start Date End Date Stone Cano MD [address] [address] PCP - General 07/27/23
--- OUTSIDE RECORDS SUMMARY | 2025-01-20 15:44 | XMS_ITS | Encounter Summary ---
Author Organization [facility] Address [address] [place] [address] Phone Care Team Providers Care Construction Mgr Name Role Phone Stone Cano MD Primary Care Provider Santana Hicks APRN, WATCH DIAL MAKER Unavailable [phone] Emiliano Dave MD Unavailable [phone] Reason for Visit * Reason Comments Medication Refill Encounter Details Date Type Department Care Team (Late st Contact Info) Description 12/17/2023 Refill [facility] - Family Medicine [facility] [address] [place] [id number] Stone Cano MD [address] [address] Medication Refill Social History Tobacco Use Types Packs/Day Years Used Date Smoking Tobacco: Never Smokeless Tobacco: Never Alcohol Use Standard Drinks/Week Comments Yes 0 (1 standard drink = 0.6 oz pur e alcohol) twice a week [facility] Utilities Answer Date Recorded In the [...] How often do you attend chur or adventist services? Patient declined 08/18/2023 Do you belong to any clubs o r organizations such as yarsani groups, unions, fraternal or athletic groups, or [...] Total Score - Questions 1-9 0 11/2023 [facility] - Occupational Stress Questionnaire Answer Date [...] Foster 03/06/23 Office Visit [facility] Showing recent visits within past 365 [...] Visit [facility] #[address] [place] [address] Stone Cano MD #[address] [address] 04/21/2025 11:15 AM CDT Office Visit [facility] #[address] [place] [address] Santana Hicks APRN, WATCH DIAL MAKER [address] [place] [address] documented as of this encounter Visit Diagnoses Not on filedocumented in this encounter Additional Health Concerns Assessment Noted Time PHQ-9 Depression Total Score: 0 08/20/19 24 8:46 AM RETURNED GOODS REPAIRER documented as of this encounter Care Teams Construction Mgr Relationship Specialty Start Date End Date Stone Cano MD #[address] [address] PCP - General Family Medicine 06/03/15 Santana Hicks APRN, WATCH DIAL MAKER [address] [place] [address] Nurse Practitioner Advanced Practice Nurse 06/06/22 Emiliano Dave MD #[address] [place] [address] Consulting Physician Gastroenterology 09/07/22 documented as of this encounter
--- OUTSIDE RECORDS SUMMARY | 2025-01-20 15:44 | XMS_ITS | Encounter Summary ---
Author Organization [facility] Address [address] [place] [address] Phone Care Team Providers Care Closing Supervisor Name Role Phone Stone Cano MD Primary Care Provider Santana Hicks APRN, VICE PRESIDENT GLOBAL ADVERTISING SALES Unavailable [phone] Emiliano Dave MD Unavailable [phone] Reason for Visit * Reason Comments Medication Refill Encounter Details Date Type Department Care Team (Late st Contact Info) Description 09/26/2023 Refill [facility] - Family Medicine [facility] #[address] [place] [address] Stone Cano MD #[address] [address] Medication Refill Social History Tobacco Use Types Packs/Day Years Used Date Smoking Tobacco: Never Smokeless Tobacco: Never Alcohol Use Standard Drinks/Week Comments Yes 0 (1 standard drink = 0.6 oz pur e alcohol) twice a week [facility] Utilities Answer Date Recorded In the [...] How often do you attend chur or judaism services? Patient declined 08/18/2023 Do you belong to any clubs o r organizations such as buddhism groups, unions, fraternal or athletic groups, or [...] Questions 1-9 0 11/2023 [facility] - Occupational Stress Questionnaire Answer Date Recorded [...] place to sleep or slept in a fdc (including now)? No 08/18/2023 Education Answer Date [...] Dept 08/20/23 Office Visit Stone Cano MD [facility] Showing recent visits within past 182 days [...] Description 02/23/2025 10:30 AM CDT Office Visit [facility] - Family Medicine [facility] #2 [place] [address] Stone Cano MD #[address] [address] 04/21/2025 11:15 AM CDT Office Visit [facility] #[address] [place] [address] Santana Hicks APRN, VICE PRESIDENT [employer]LOBAL ADVERTISING SALES [address] [place] [address] documented as of this encounter Visit Diagnoses Not on filedocumented in this encounter Additional Health Concerns Infection Onset Date Last Indicated Resolved Time COVID - 19 11/10/2023 11/10/2023 11/10/2023 12:3 1 PM CDT Assessment Noted Time PHQ-9 Depression Total Score: 0 02/05/20 24 8:46 AM HOSPITAL UNIT COORDINATOR documented as of this encounter Care Teams Closing Supervisor Relationship Specialty Start Date End Date Stone Cano MD #[address] [address] PCP - General Family Medicine 06/03/15 Santana Hicks APRN, VICE PRESIDENT [employer] ADVERTISING SALES [address] [place] [address] Nurse Practitioner Advanced Practice Nurse 06/06/22 Emiliano Dave MD #[address] [place] [address] Consulting Physician Gastroenterology 09/07/22 documented as of this encounter
--- OUTSIDE RECORDS SUMMARY | 2025-01-20 15:44 | XMS_ITS | Encounter Summary ---
Author Organization [facility] Address [address] [place] [address] Phone Care Team Providers Care Account Development Manager Name Role Phone Stone Cano MD Primary Care Provider Santana Hicks APRN, [employer] Unavailable [phone] Emiliano Dave MD Unavailable [phone] Reason for Visit * Reason Comments 3 month follow up Encounter Details Date Type Department Care Team (Late st Contact Info) Description 01/19/2025 11:15 AM CDT Office Visit [facility] #2 [place] [phone] Santana Hicks, NONDESTRUCTIVE TESTER, [employer] [address] [place] [address] 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 Never 08/16/2024 Do you belong to any clubs o r organizations such as yazidism groups, unions, fraternal or athletic groups, or [...] Recorded Total Score - Questions 1-9 0 08/0 02/2024 [facility] - Occupational [...] money to buy more. Never true 08/16/19 25 Within the past 12 months, t he [...] place to sleep or slept in a nursing home (including now)? No 08/18/2023 Housing Stability Vital Sign Answer Shaun e Recorded In the last 12 months, was t here a time when you were not able to pay the mortgage or rent on time? No 08/16/19 Number of Times Moved in the Last Year Not on fi le 08/16/2024 At any time in the past 12 m [facility], were you homeless or living in a nursing home (including now)? Patient declined 08/16/2024 Education Answer [...] on file documented as of this encounter Last Filed Vital Signs Vital Sign Reading Time Taken Comments Blood Pressure 140/80 01/19/2025 11:19 AM CDT Pulse 62 01/19/2025 11:19 AM CDT Temperature - - Respiratory Rate - - Oxygen Saturation 99% 01/19/2025 11:19 AM CDT Inhaled Oxygen Concentration - - Weight 87.5 kg (193 lb) 01/19/2025 11:19 AM CDT Height 167.6 cm (5' 6) 01/19/2025 11:19 AM CDT Body Mass Index 31.15 01/19/2025 11:19 AM CDT documented in this encounter Progress Notes * Santana Hicks APRN, JOSE - 01/19/2025 11:15 AM CDT UROLOGY [facility] [address] [facility], [address] [place] [address] PHONE: FAX: Assessment & Plan Low T-T in the low normal side. Worsening fatigue. However, hematocrit is still elevated. We will have patient donate blood and we will repeat testosterone and hematocrit. May need to manage elevatedhematocrit with donating blood versus phlebotomy. Will plan to continue current dosing until HCT ismanaged. BPH- continue flomax and finasteride Subjective: 06/06/2022 HPI: HPI: Keemu Moore presents to the office for follow-up on low T and elevated PSA. 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 He was most recently doing testopelwhich was working well and then became too expensive to continue. He recently saw a urologist at [facility] as he thought that they could do testopel, but they were not able to. They had labs drawn that show T- 79.40. He reports associated symptoms of frequent napping during the day, decreased motivation, apathy, and feeling like his brain is foggy. He has done topicals in the past which did not work due to the risk of transfer injury. He has done IM testosterone cyp in the past which did not work well as they could not get his T stable and he did not like giving himself an IM injection due to pain. He also had a PSA drawn 05/2022 that came back at 2.72. This PSA is significantly lower than previous in which PSA's were running in the -'s. Hx of negative prostate biopsy about 10 years ago. He is on Tamsulosin and started Finasteride about 1 week ago. Hx of TURP x2 in the past. UA- negative for blood or infection 01/09/2023 HPI: HPI: Keemu Moore presents to the office for follow-up of male hypogonadism an elevated PSA. Patient has been taking Xyosted 75 mg weekly. He reports improved energy levels and improved motivation. He would labs completed on 01/01/2023 that showed testosterone of 766. PSA and hematocrit drawn on 2022 that showed a PSA of 2.98 (5.96 adjusted) and hematocrit of 45.8. He denies any issues with injections. 11/19/2023 HPI: HPI: Kee Strickland Teresa presents to the office for follow-up on low testosterone. Patient continues Xyosted 75 mg weekly. Labs drawn recently as below. Could not get PSA drawn due to insurance. Notes that he has noticed decreased energy level, but also has been dealing with bronchitis for the past 3 weeks or so with decreased sleep. T-327 Hct- 53.0 03/24/2024 HPI: HPI: Kee Strickland Teresa presents to the office for follow-up. Patient had labs completed on 03/18/2024 which showed a testosterone of 200, hematocrit of 53.1, and PSA of 3.67. Xyosted was increased to 100 mg last visit. On review of technique patient was injecting medication too far into the side and not getting it into subcutaneous tissue. Likely explanation for why testosterone is subtherapeutic. PSA down with decreased t level. Notes worsening symptoms of low t. 04/28/2024 HPI: HPI: Kee Zambranoamos presents to the office for 4 week follow-up. He has been on Xyosted 100 mg weekly. Reports improvement with injection technique it was no longer having episodes where he was injecting into the skin. Labs completed as below. Nodes with increased dose and better technique initially he was having some agitation which has resolved at this time. Labs 04/21/2024 T- 931 Hct- 55.8 03/18/2024 PSA- 3.67 06/30/2024 HPI: HPI: Kee Strickland Teresa presents to the office for three-month follow-up. He has been doing Xyosted 100 mg every 2 weeks. Labs completed as below. Reports significant worsening of fatigue, energy level, and irritability. Hematocrit improved. Labs 06/24/2024 Testosterone- 50 Hct- 47.8 10/13/2024 HPI: HPI: Kee Moore presents to the office for follow-up on low T. He has been taking Xyosted 75 mg weekly. Reports that injections have been going well not having any issues getting medication to subcutaneous tissue. Reports some worsening fatigue, however he was recently started on terbinafine and noted after the 1st couple of days of taking his medications he is feeling more fatigued. Recent labs as below. Labs 10/08/2024 T-614 Hct- 52.4 01/19/2025 HPI: HPI: Kee Moore presents to the office for 3-month follow-up. He had labs completed recently as below. Still noticing some worsening fatigue. He is still taking to terbinafine. Notes that approximately 3 weeks ago he noticed an enlarged vessel above his ear on the left side that was swollen and painful to palpation. Over the past couple of days this is gone down Labs 01/14/2025 T- 337 HCT- 53.4 The following portions of the patient's chart were reviewed in this encounter and updated as appropriate: ROS: Review of Systems Constitutional: Positive for malaise/fatigue. Negative for chills and fever. Respiratory: Negative for cough and shortness of breath. Cardiovascular: Negative for chest pain and palpitations. Gastrointestinal: Negative for abdominal pain, diarrhea, nausea and vomiting. Musculoskeletal: Negative for myalgias. Neurological: Negative for dizziness and weakness. Objective: Vital signs: There were no vitals taken for this visit. There were no vitals filed for this visit. Physical Exam Constitutional: Appearance: Normal appearance. HENT: Head: Normocephalic. Cardiovascular: Rate and Rhythm: Normal rate. Pulmonary: Effort: Pulmonary effort is normal. No respiratory distress. Abdominal: General: Abdomen is flat. Palpations: Abdomen is soft. Tenderness: There is no abdominal tenderness. Musculoskeletal: Cervical back: Neck supple. Skin: General: Skin is warm and dry. Capillary Refill: Capillary refill takes less than 2 seconds. Neurological: General: No focal deficit present. Mental Status: He is alert and oriented to person, place, and time. Lab Results Component Value Date WBC 7.82 02/15/2024 HEMOGLOBIN 17.7 (H) 02/15/2024 PLATELETCNT 243 02/15/2024 MCV 92.2 02/15/2024 Lab Results Component Value Date SODIUM 141 01/14/2025 POTASSIUM 4.2 01/14/2025 CHLORIDE 106 01/14/2025 CO2VEN 27 01/14/2025 ANIONGAP 12.2 01/14/2025 GLUCOSE 113 (H) 01/14/2025 BUN 27 (H) 01/14/2025 CREATININE 1.12 01/14/2025 BCRATIO8 24 (H) 01/14/2025 TOTALPROTEIN 7.3 01/14/2025 ALBUMIN 4.5 01/14/2025 CALCIUM 9.2 01/14/2025 TBIL 0.5 01/14/2025 SGOTAST 37 01/14/2025 SGPTALT 33 01/14/2025 ALKALINEPHO 63 01/14/2025 GFRNA >60 01/14/2025 GFRA >60 01/14/2025 Lab Results Component Value Date PSASCREEN 3.67 03/18/2024 PSASCREEN 4.29 (H) 02/28/2023 PSASCREEN 6.45 (H) 01/02/2022 PSAFREE 0.86 12/06/2017 PSAFREE 1.43 06/18/2017 PSAFREE 1.12 11/08/2016 PSAPCNTFREE 16.1 12/06/2017 PSAPCNTFREE 26.8 06/18/2017 PSAPCNTFREE 20.4 11/08/2016 PSATOTAL 2.98 2022 PSATOTAL 2.91 04/11/2018 PSATOTAL 5.34 (H) 12/06/2017 Results for orders placed or performed in visit on 07/17/20 URINALYSIS REFLEX IF INDICATED BY ABNORMAL RESULTS Result Value Ref Range Status SPECIFIC GRAVITY 1.005 1.003 - 1.030 Final URINE PH 7.0 5.0 - 9.0 Final WBC ESTERASE Negative Negative Final NITRITE Negative Negative Final PROTEIN, RANDOM URINE Negative Negative Final URINE GLUCOSE, QUAL Negative Negative Final URINE KETONES Negative Negative Final UROBILINOGEN Normal Normal mg/dL Final URINE BILIRUBIN Negative Negative Final URINE BLOOD Negative Negative teddy/ul Final URINALYSIS COLOR Yellow Final URINALYSIS CLARITY Clear Final Results for orders placed or performed in visit on 06/08/20 CULTURE, URINE Specimen: Urine; Culture Result Value Ref Range Status CULTURE RESULTS Final MIXED GROWTH OF ONE OR MORE DISTAL URETHRAL CONTAMINANTS Results for orders placed or performed during the hospital encounter of 10/30/16 Urinalysis Microscopic If Indicated Result Value Ref Range Status SPECIFIC GRAVITY 1.010 1.003 - 1.030 Final URINE PH 7.0 5.0 - 9.0 Final WBC ESTERASE Negative Negative Final NITRITE Negative Negative Final PROTEIN, RANDOM URINE 500 mg/dL (A) Negative mg/dL Final URINE GLUCOSE, QUAL Negative Negative Final URINE KETONES 5 mg/dL (A) Negative mg/dL Final UROBILINOGEN Normal Normal mg/dL Final URINE BILIRUBIN Negative Negative Final URINE BLOOD 250 /uL (A) Negative teddy/ul Final URINALYSIS COLOR Red Final URINALYSIS CLARITY Bloody Final WBC (Urine) Negative Negative, 0-5 /hpf Final URINE RBC'S Packed (A) Negative, 0-5 /hpf Final EPITHELIAL CELLS Negative /lpf Final BACTERIA, URINE Few (A) Negative /hpf Final Lab Results Component Value Date TESTOSTTTL 337 01/14/2025 No results found for this or any previous visit from the past 365 days. There are no diagnoses linked to this encounter. By: Santana Hicks APRN, CNP, 01/19/2025, 8:58 AM CDT Primary Care Physician: Stone Cano MD documented in this encounter Plan of Treatment Upcoming Encounters Date Type Department Care Team (Late st Contact Info) Description 02/23/2025 10:30 AM CDT Office [facility] - Family Medicine [facility] [address] [place] [phone] Stone Cano MD #[address] [address] 04/21/2025 11:15 AM CDT Office Visit [facility] #[address] [place] [phone] Santana Hicks APRN, CNP [address] [place] [address] Scheduled Orders Name Type Priority Associated Diagnoses Orde r Schedule TESTOSTERONE Lab Routine Hypogonadism in 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, secondary Expected: 01/19/2025, Expires: 04/21/2025 HEMATOCRIT Lab Routine Hypogonadism in 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, secondary Expected: 01/19/2025, Expires: 04/21/2025 documented as of this encounter Visit Diagnoses Diagnosis Benign non-nodular prostatic hyperplasia with lower urinary tract symptoms- Primary Hypogonadism in male Encounter for screening for malignant neoplasm of prostate Special screening for malignant neoplasm of prostate Polycythemia, secondary documented in this encounter Additional Health Concerns Assessment Noted Time PHQ-9 Depression Total Score: 0 02/21/20 24 9:31 AM CDT documented as of this encounter Care Teams Account Development Manager Relationship Specialty Start Date End Date Stone Cano MD #[address] [address] PCP - General Family Medicine 06/03/15 Santana Hicks APRN, [employer] [address] [place] [address] Nurse Practitioner Advanced Practice Nurse 06/06/22 Emiliano Dave MD [address] [place] [address] Consulting Physician Gastroenterology 09/07/22 documented as of this encounter
--- OUTSIDE RECORDS SUMMARY | 2025-01-20 15:44 | XMS_ITS | Encounter Summary ---
Author Organization [facility] Address [address] [place] [address] Phone Care Team Providers Care Legal Researcher Name Role Phone Stone Cano MD Primary Care Provider Santana Hicks APRN, LOADING MACHINE TOOL SETTER Unavailable [phone] Emiliano Dave MD Unavailable [phone] Reason for Visit * Reason Comments Medication Refill Encounter Details Date Type Department Care Team (Late st Contact Info) Description 08/06/2022 Refill [facility] - Family Medicine [facility] [address] [place] [phone] Stone Cano MD #[address] [address] Medication Refill Social History Tobacco Use Types [...] Coronavirus/COVID-19? No / Unsure 2022 10:11 AM NURSE EMERGENCY ROOM documented as of this encounter Miscellaneous Notes [...] days and meeting all other requirements E EMERGENCY ROOM documented in this encounter Plan of Treatment Upcoming Encounters Date Type Department Care Team (Late st Contact Info) Description 02/23/2025 10:30 AM CDT Office Visit [facility] - Family [facility] [address] [place] [address] Stone Cano MD #[address] [address] 04/21/2025 11:15 AM CDT Office Visit [facility] PHYSICIAN [facility] UROLOGY [address] [place] [address] Santana Hicks APRN, LOADING MACHINE TOOL SETTER [address] [place] [address] documented as of this encounter Visit Diagnoses Diagnosis Anxiety Anxiety state, unspecified documented in this encounter Additional Health Concerns Infection Onset Date Last Indicated Resolved Time COVID - 19 11/10/2023 11/10/2023 11/10/2023 12:3 1 PM CDT Assessment Noted Time PHQ-9 Depression Total Score: 0 08/31/19 22 9:00 AM NURSE EMERGENCY ROOM documented as of this encounter Care Teams Legal Researcher Relationship Specialty Start Date End Date Stone Cano MD #[address] [address] PCP - General Family Medicine 06/03/15 Santana Hicks APRN, LOADING MACHINE TOOL SETTER [address] [place] [address] Nurse Practitioner Advanced Practice Nurse 06/06/22 Emiliano Dave MD [address] [place] [address] Consulting Physician Gastroenterology 09/07/22 documented as of this encounter
--- OUTSIDE RECORDS SUMMARY | 2025-01-20 15:44 | XMS_ITS | Encounter Summary ---
Author Organization [facility] Address [address] [place] [address] Phone Care Team Providers Care Information Assistant Name Role Phone Stone Cano MD Primary Care Provider Santana Hicks APRN, CAFETERIA MANAGER Unavailable [phone] Emiliano Dave MD Unavailable [phone] Reason for Visit * Reason Comments Medication Refill Encounter Details Date Type Department Care Team (Late st Contact Info) Description 11/07/2022 Refill [facility] - Family Medicine [facility] [address] [place] [phone] Stone Cano MD #[address] [address] Medication Refill Social History Tobacco Use Types [...] Dept 09/05/22 Office Visit Stone Cano MD [facility] 02/28/22 Office Visit Stone Cano MD [facility] Showing recent visits within past 365 days and meeting all other requirements Future Appointments No visits were found meeting these conditions. Showing future appointments within next 90 days and meeting all other requirements documented in this encounter Plan of Treatment Upcoming Encounters Date Type Department Care Team (Late st Contact Info) Description 02/23/2025 10:30 AM CDT Office Visit [facility] - Family Medicine [facility] [address] [place] [address] Stone Cano MD #[address] [address] 04/21/2025 11:15 AM CDT Office Visit [facility] [address] [place] [address] Santana Hicks APRN, CAFETERIA MANAGER [address] [place] [address] documented as of this encounter Visit Diagnoses Diagnosis Anxiety Anxiety state, unspecified documented in this encounter Additional Health Concerns Infection Onset Date Last Indicated Resolved Time COVID - 19 11/10/2023 11/10/2023 11/10/2023 12:3 1 PM CDT Assessment Noted Time PHQ-9 Depression Total Score: 0 09/05/19 8:00 AM PLATER APPRENTICE documented as of this encounter Care Teams Information Assistant Relationship Specialty Start Date End Date Stone Cano MD #[address] [address] PCP - General Family Medicine 06/03/15 Santana Hicks APRN, CAFETERIA MANAGER [address] [place] [address] Nurse Practitioner Advanced Practice Nurse 06/06/22 Emiliano Dave MD [address] [place] [address] Consulting Physician Gastroenterology 09/07/22 documented as of this encounter
--- OUTSIDE RECORDS SUMMARY | 2025-01-20 15:44 | XMS_ITS | Encounter Summary ---
Author Organization [facility] Address [address] [place] [address] Phone Care Team Providers Care Admissions Manager Name Role Phone Stone Cano MD Primary Care Provider [phone] Santana Hicks APRN, PRODUCT SAFETY COMPLIANCE LEADER Unavailable Emiliano Dave MD Unavailable [phone] Reason for Visit * Reason Comments Medication Refill Encounter Details Date Type Department Care Team (Late Contact Info) Description 11/07/2022 Refill [facility] #[address] [place] [phone] Santana Hicks, INSURANCE INVESTIGATOR, PRODUCT SAFETY COMPLIANCE LEADER [address] [place] [address] Medication Refill Social History Tobacco Use Types [...] AM CDT [facility] order for pediatric and adult patients. documented in this encounter Plan of Treatment Upcoming Encounters Date Type Department Care Team (Late st Contact Info) Description 02/23/2025 10:30 AM CDT Office Visit [facility] - Family Medicine [facility] [address] [place] [address] Stone Cano MD #[address] [address] 04/21/2025 11:15 AM CDT Office Visit [facility] [address] [place] [address] Santana Hicks APRN, PRODUCT SAFETY COMPLIANCE LEADER [address] [place] [address] documented as of this encounter Visit Diagnoses Diagnosis Benign non-nodular prostatic hyperplasia with lower urinary tract symptoms documented in this encounter Additional Health Concerns Infection Onset Date Last Indicated Resolved Time COVID - 19 11/10/2023 11/10/2023 11/10/2023 12:3 1 PM CDT Assessment Noted Time PHQ-9 Depression Total Score: 0 09/05/19 23 8:00 AM RISK MANAGEMENT ANALYST documented as of this encounter Care Teams Admissions Manager Relationship Specialty Start Date End Date Stone Cano MD #[address] [address] PCP - General Family Medicine 06/03/15 Santana Hicks APRN, PRODUCT SAFETY COMPLIANCE LEADER [address] [place] [address] Nurse Practitioner Advanced Practice Nurse 06/06/22 Emiliano Dave MD [address] [place] [address] Consulting Physician Gastroenterology 09/07/22 documented as of this encounter
--- OUTSIDE RECORDS SUMMARY | 2025-01-20 15:44 | XMS_ITS | Encounter Summary ---
Author Organization [facility] Address [address] [place] [address] Phone Care Team Providers Care Manager Credit Collections Name Role Phone Stone Cano MD Primary Care Provider Santana Hicks APRN, PERFORMANCE ARCHITECT Unavailable [phone] Emiliano Dave MD Unavailable [phone] Reason for Visit * Reason Comments Medication Refill Encounter Details Date Type Department Care Team (Late st Contact Info) Description 09/10/2023 Refill [facility] - Family Medicine [facility] #[address] [place] [address] Stone Cano MD #[address] [address] Medication Refill Social History Tobacco Use Types Packs/Day Years Used Date Smoking Tobacco: Never Smokeless Tobacco: Never Alcohol Use Standard Drinks/Week Comments Yes 0 (1 standard drink = 0.6 oz pur e alcohol) twice a week [facility] Utilities Answer Date Recorded [...] How often do you attend chur or restorationism services? Patient declined 08/18/2023 Do you belong to any clubs o r organizations such as roman catholic groups, unions, fraternal or athletic groups, or [...] Total Score - Questions 1-9 0 11/2023 [facility] - Occupational Stress Questionnaire Answer Date [...] place to sleep or slept in a detention (including now)? No 08/18/2023 Education Answer Date [...] 90 days and meeting all other requirements VEHICLE SALES CONSULTANT documented in this encounter Plan of Treatment Upcoming Encounters Date Type Department Care Team (Late st Contact Info) Description 02/23/2025 10:30 AM CDT Office Visit [facility] - Family [facility] [address] [place] [address] Stone Cano MD #[address] [address] 04/21/2025 11:15 AM CDT Office Visit [facility] PHYSICIAN [facility] #[address] [place] [address] Santana Hicks APRN, PERFORMANCE ARCHITECT [address] [place] [address] documented as of this encounter Visit Diagnoses Diagnosis Anxiety Anxiety state, unspecified documented in this encounter Additional Health Concerns Infection Onset Date Last Indicated Resolved Time COVID - 19 11/10/2023 11/10/2023 11/10/2023 12:3 1 PM CDT Assessment Noted Time PHQ-9 Depression Total Score: 0 08/20/19 8:46 AM NEW VEHICLE SALES CONSULTANT documented as of this encounter Care Teams Manager Credit Collections Relationship Specialty Start Date End Date Stone Cano MD #[address] [address] PCP - General Family Medicine 06/03/15 Santana Hicks APRN, PERFORMANCE ARCHITECT [address] [place] [address] Nurse Practitioner Advanced Practice Nurse 06/06/22 Emiliano Dave MD [address] [place] [address] Consulting Physician Gastroenterology 09/07/22 documented as of this encounter
--- OUTSIDE RECORDS SUMMARY | 2025-01-20 15:44 | XMS_ITS | Encounter Summary ---
Author Organization [facility] Address [address] [place] [address] Phone Care Team Providers Care Sewer Pipe Offbearer Name Role Phone Stone Cano MD Primary Care Provider [phone] Santana Hicks APRN, TILE FINISHER Unavailable [phone] Emiliano Dave MD Unavailable [phone] Reason for Visit * Reason Comments Medication Refill Encounter Details Date Type Department Care Team (Late Contact Info) Description 12/12/2023 Refill [facility] #2 [place] [phone] Santana Hicks, PROSTHETIST, TILE FINISHER #2 [place] [address] Medication Refill Social History Tobacco Use Types Packs/Day Years Used Date Smoking Tobacco: Never Smokeless Tobacco: Never Alcohol Use Standard Drinks/Week Comments Yes 0 (1 standard drink = 0.6 oz pur e alcohol) twice a week [facility] Utilities Answer Date Recorded In the past 12 months has [employer] electric, gas, oil, or water company threatened [...] How often do you attend chur or voodoo services? Patient declined 08/18/2023 Do you belong [...] Score - Questions 1-9 0 11/2023 [facility] - [...] place to sleep or slept in a penitentiary (including now)? No 08/18/2023 Education Answer Date [...] Visit [facility] [place] [address] [place] [address] Stone Cano MD #[address] [address] 04/21/2025 11:15 AM CDT Office Visit [facility] #2 [place] [address] Santana Hicks APRN, TILE FINISHER #2 [place] [address] documented as of this encounter Visit Diagnoses Diagnosis Benign non-nodular prostatic hyperplasia with lower urinary tract symptoms documented in this encounter Additional Health Concerns Assessment Noted Time PHQ-9 Depression Total Score: 0 08/20/19 24 8:46 AM ARCHAEOLOGY PROFESSOR documented as of this encounter Care Teams Sewer Pipe Offbearer Relationship Specialty Start Date End Date Stone Cano MD #[address] [address] PCP - General Family Medicine 06/03/15 Santana Hicks, PROSTHETIST, TILE FINISHER [address]2 [place] [address] Nurse Practitioner Advanced Practice Nurse 06/06/22 Emiliano Dave MD #2 [place] [address] Consulting Physician Gastroenterology 09/07/22 documented as of this encounter
--- OUTSIDE RECORDS SUMMARY | 2025-01-20 15:44 | XMS_ITS | Encounter Summary ---
Author Organization [facility] Address [address] [place] [address] Phone Care Team Providers Care Yard Motor Operator Name Role Phone Stone Cano MD Primary Care Provider [phone] Santana Hicks APRN, AUTOMATIC TIRE TESTER Unavailable [phone] Emiliano Dave MD Unavailable [phone] Reason for Visit * Reason Comments Medication Refill Encounter Details Date Type Department Care Team (Late st Contact Info) Description 02/18/2023 Refill [facility] - [facility] Medicine [facility] #2 [place] [phone] Stone Cano MD #[address] [address] Medication Refill Social History Tobacco Use Types [...] Dept 09/05/22 Office Visit Stone Cano MD [facility] Cristian 02/28/22 Office Visit Stone Cano MD [facility] Cristian Showing recent visits within past 365 days and meeting all other requirements Future Appointments Date Type Provider Dept 03/06/23 Appointment Stone Cano MD [facility] Crist[facility] Showing future appointments within next 90 days and meeting all other requirements documented in this encounter Plan of Treatment Upcoming Encounters Date Type Department Care Team (Late st Contact Info) Description 02/23/2025 10:30 AM CDT Office Visit [facility] - Family [facility] #2 [place] [address] Stone Cano MD #[address] [address] 04/21/2025 11:15 AM CDT Office Visit [facility] #2 [place] [address] Santana Hicks APRN, AUTOMATIC TIRE TESTER #2 [place] [address] documented as of this encounter Visit Diagnoses Diagnosis Anxiety Anxiety state, unspecified documented in this encounter Additional Health Concerns Infection Onset Date Last Indicated Resolved Time COVID - 19 11/10/2023 11/10/2023 11/10/2023 12:3 1 PM CDT Assessment Noted Time PHQ-9 Depression Total Score: 0 09/05/19 8:00 AM SENIOR SECURITY ANALYST documented as of this encounter Care Teams Yard Motor Operator Relationship Specialty Start Date End Date Stone Cano MD #[address] [address] PCP - General Family Medicine 06/03/15 Santana Hicks APRN, AUTOMATIC TIRE TESTER [address]2 [place] [address] Nurse Practitioner Advanced Practice Nurse 06/06/22 Emiliano Dave MD #2 [place] [address] Consulting Physician Gastroenterology 09/07/22 documented as of this encounter
--- OUTSIDE RECORDS SUMMARY | 2025-01-20 15:44 | XMS_ITS | Clinical Summary ---
Author Organization [facility] Address #1 [place] [address] Phone Care Team Providers Care Furnace Combustion Tester Name Role Phone Stone Cano MD Primary Care Provider [phone] Santana Hicks APRN, PRECIPITATOR SUPERVISOR Unavailable [phone] Emiliano Dave MD Unavailable [phone] Allergies No known active allergies Medications [...] DAILY 90 Capsule 2 11/25/19 25 Active Testosterone Enanthate (Xyosted) 75 MG/0.5ML Solution Auto-injectorI ndications:Hyp ogonadism in male 0.5 mL by Subcutaneous route once a week for 90 days. 6 mL 1 12/16/19 25 2024 Active tamsulosin (FLOMAX) 0.4 MG CapsuleIndicat ions:Benign non-nodular prostatic hyperplasia with lower urinary tract symptoms TAKE 1 CAPSULE EVERY MORNING 90 Capsule 3 01/07/20 25 Active terbinafine (LamISIL) 250 MG Tablet Take 1 Tablet by mouth daily for 56 days. 28 Tablet 1 01/09/20 25 2024 Active finasteride (PROSCAR) 5 MG TabletIndicati ons:Benign non-nodular prostatic hyperplasia with lower urinary tract symptoms Take 1 Tablet by mouth daily. 90 Tablet 3 01/20/20 25 Active tamsulosin (FLOMAX) 0.4 MG CapsuleIndicat ions:Benign non-nodular prostatic hyperplasia with lower urinary tract symptoms TAKE 1 CAPSULE EVERY MORNING 90 Capsule 3 12/13/19 24 2024 Discontinued terbinafine (LamISIL) 250 MG Tablet Take 1 Tablet by mouth daily for 45 days. 45 Tablet 11/20/19 25 2024 finasteride (PROSCAR) 5 MG Tablet Take 1 Tablet by mouth daily. 30 Tablet 3 11/28/19 25 2024 Discontinued(R eolelo) Active Problems Problem Noted Date Diagnosed Date [...] Encounters Date Type Department Care Team Description 01/19/2025 11:15 AM CDT Office Visit [facility] #2 [place] [address] Santana Hicks APRN, JOSE Benign non-nodular prostatic hyperplasia with lower urinary tract symptoms (Primary Dx); Hypogonadism in male; Encounter for screening for malignant neoplasm of prostate; Polycythemia, secondary Discharge Disposition: Discharged to home or Selfcare 01/19/2025 Travel 01/14/2025 Travel 01/06/2025 Refill [facility] #2 [place] [address] Santana Hicks APRN, JOSE Medication Refill 12/15/2024 Telephone [facility] #2 [place] [address] Santana Hicks APRN, JOSE 11/26/2024 Refill [facility] #2 [place] [address] Santana Hicks APRN, JOSE Medication Refill 11/22/2024 Refill [facility] #2 [place] [address] Stone Cano MD Medication Refill from Last [...] Valent 3 Pneumococcal conjugate PCV20 , polysaccharide [id number] conjugate, adjuvant, PF 02/28/2022 RSV, Recombinant, Protein Saavedra bunit Rsvpref, Adjuvant Recon (Arexvy) 03/05/2024 TB Skin Test 08/10/2015 TDAP Vaccine 03/10/2016,09/05/2011 Tetanus Toxoid, Unspecified Formulation 08/16/2011 Tuberculin Skin Test; Emeliaifi ed Protein Derivative Solutiol 03/29/2002,05/04/2001,05/05/2000 Typhoid Vaccine [...] oz pur e alcohol) twice a week [email or web address] Answer Date Recorded In the past 12 months has [employer], oil, or water [employer] threatened to shut off services in your home? No 08/16/2024 Social Connection and Isolation Panel Answer Date Recorded In a typical week, how many times do you talk on the phone with family, friends, or neighbors? More than three times a week 08/16/2024 How often do you get togethe r with friends or relatives? Once a week 08/16/2024 How often do you attend [facility] or [facility] services? Never 08/16/2024 Do you belong to [...] Total Score - Questions 1-9 0 02/2024 [facility] - [...] place to sleep or slept in a care home (including now)? No 08/18/2023 Housing Stability Vital Sign Answer Shaun e Recorded In the last 12 months, was t here a time when you were not able to pay the mortgage or rent on time? No 08/16/19 Number of Times Moved in the Last Year Not on fi le 08/16/2024 At any time in the past 12 m [facility], were you homeless or living in a care home (including now)? Patient declined 08/16/2024 Education [...] Pulse 62 01/19/2025 11:19 AM CDT Temperature 36 C (96.8 F) 08/18/2024 8:56 AM TIP PRINTER Respiratory Rate 18 10/13/2024 11:02 AM CDT Oxygen Saturation 99% 01/19/2025 11:19 AM CDT Inhaled Oxygen Concentration - - Weight 87.5 kg (193 lb) 01/19/2025 11:19 AM CDT Height 167.6 cm (5' 6) 01/19/2025 11:19 AM CDT Body Mass Index 31.15 01/19/2025 11:19 AM CDT Plan of Treatment Upcoming Encounters Date Type Department Care Team (Late st Contact Info) Description 02/23/2025 10:30 AM CDT [facility] #2 [place] [address] Stone Cano MD #[address] [place] [address] [address] 04/21/2025 11:15 AM CDT Office Visit [facility] #2 [place] [address] Santana Hicks, MUFFLER TENDER, PRECIPITATOR SUPERVISOR [address] [place] [address] Health Maintenance Due Date Last Done Comments Zoster Immunization (2 of 3) 09/10/2008 07/16/2008 SARS-COV-2 Immunization ( season) 2024 05/10/2021, 09/21/2020, 08/24/2020 Influenza Immunization (#1) 2025 0807/2023, 04/19/2023, 04/19/2023, Additional history exists Td Immunization Every 10 Years (Adults With 1 Tdap) 03/10/2026 03/10/2016, 09/05/2011 Hepatitis C Virus (HCV) Screening Completed 09/16/2020, 09/03/2017 Pneumococcal Immunization (50+ years) Completed 02/28/2022, 06/15/2016, 06/15/2016, Additional history exists Pneumococcal Immunization Combined Discontinued 02/28/2022, 06/15/2016, 06/15/2016, Additional history exists Colonoscopy Discontinued 08/16/2023, 10/14, 09/06/2016 Colorectal Cancer Screening Discontinued Respiratory Syncytial Virus (RSV) Immunization (Adult) Completed [...] Procedure Name Priority Date/Time Associated Diagnosis Comments TESTOSTERONE Routine 01/14/2025 9:15 AM CDT Hypogonadism in male LIPID PANEL Routine 01/14/2025 9:15 AM CDT Essential hypertension Chronic midline low back pain without sciatica Hypogonadism in male CMP (COMPREHENSIVE METABOLIC PANEL) Routine 01/14/2025 9:15 AM CDT Essential hypertension Chronic midline low back pain without sciatica Hypogonadism in male HEMATOCRIT Routine 01/14/2025 9:15 AM CDT Hypogonadism in male TESTOSTERONE Routine 01/14/2025 9:15 AM CDT Hypogonadism in male DERMATOLOGY CONSULT 12/01/2024 1 2:00 AM CDT HEPATITIS C ANTIBODY Routine 09/03/2017 10:11 AM TIP PRINTER Essential hypertension Hyperlipidemia, unspecified hyperlipidemia type Gastroesophageal reflux disease without esophagitis from Last 3 Months or Most Recently Relevant to Health Maintenance Results * TESTOSTERONE (01/14/2025 9:15 AM CDT) TESTOSTERONE, TOTAL 337 221 - 716 ng/dL 01/14/2025 9:32 PM CDT [facility] Blood Venipuncture / Unknown 01/14/2025 9:15 AM CDT 01/14/2025 11:50 AM CDT us Santana Hicks APRN, PRECIPITATOR SUPERVISOR CHEMISTRY ORDERABLES F inal Result [facility] [address] [place] [address], [place] * (ABNORMAL) LIPID PANEL (01/14/2025 9:15 AM CDT) CHOLESTEROL 169 <200 mg/dL 01/14/2025 10:56 AM CDT [facility] TRIGLYCERIDES 160(H) <150 mg/dL 01/14/2025 10:56 AM CDT [facility] HDL CHOLESTEROL 57 >40 mg/dL 10:56 AM CDT [facility] LDL 80 <130 mg/dL 01/14/2025 10:56 AM CDT [facility] VLDL 32 10 - 50 mg/dL 01/14/2025 10:56 AM CDT [facility] CHOL/HDL RATIO 3.0 0.0 - 4.4 01/14/2025 10:56 AM CDT [facility] NON-HDL CHOLESTEROL 112 <130 mg/dL 01/14/2025 10:56 AM CDT [facility] IS THE PATIENT REQUIRED TO BE FASTING? No 01/14/2025 10:56 AM CDT [facility] Blood Venipuncture / Unknown 01/14/2025 9:15 AM CDT 01/14/2025 10:27 AM CDT Stone Cano MD CHEMISTRY ORDERABLES Final Re sult Performing Organization Address City/[facility]/ZIP Co de Phone Number [facility] [address] [place] [address] * (ABNORMAL) HEMATOCRIT (01/14/2025 9:15 AM CDT) HEMATOCRIT (HCT) 53.4(H) 38.0 - 50.0 % 01/14/2025 10:36 AM CDT [facility] Blood Venipuncture / Unknown 01/14/2025 9:15 AM CDT 01/14/2025 10:26 AM CDT Santana iHcks APRN, PRECIPITATOR SUPERVISOR HEMATOLOGY ORDERABLES Final Result [facility] [address] [place] [address] * (ABNORMAL) CMP (COMPREHENSIVE METABOLIC PANEL) (01/14/2025 9:15 AM CDT) SODIUM 141 136 - 145 mmol/L 01/14/2025 10:56 AM CDT [facility] POTASSIUM 4.2 3.5 - 5.1 mmol/L 01/14/2025 10:56 AM CDT [facility] CHLORIDE 106 98 - 107 mmol/L 01/14/2025 10:56 AM CDT [facility] CO2, VENOUS 27 22 - 30 mmol/L 01/14/2025 10:56 AM CDT [facility] ANION GAP 12.2 <18.0 mmol/L 01/14/2025 10:56 AM CDT [facility] GLUCOSE 113(H) 70 - 99 mg/dL 01/14/2025 10:56 AM CDT [facility] BUN 27(H) 8 - 26 mg/dL 01/14/2025 10:56 AM CDT [facility] CREATININE, BLOOD 1.12 0.70 - 1.30 mg/dL 01/14/2025 10:56 AM CDT [facility] BUN/CREATININE RATIO 24(H) 12 - 20 ratio 01/14/2025 10:56 AM CDT [facility] TOTAL PROTEIN 7.3 6.0 - 8.0 g/dL 01/14/2025 10:56 AM CDT [facility] ALBUMIN 4.5 3.5 - 5.0 g/dL 01/14/2025 10:56 AM CDT [facility] A/G RATIO 1.6 1.0 - 2.2 01/14/2025 10:56 AM CDT [facility] CALCIUM 9.2 8.7 - 10.5 mg/dL 01/14/2025 10:56 AM CDT [facility] T BILI 0.5 0.2 - 1.2 mg/dL 01/14/2025 10:56 AM CDT [facility] SGOT (AST) 37 <43 U/L 01/14/2025 10:56 AM CDT [facility] SGPT (ALT) 33 <56 U/L 01/14/2025 10:56 AM CDT [facility] ALKALINE PHOSPHATASE 63 40 - 150 U/L 01/14/2025 10:56 AM CDT [facility] IS THE PATIENT REQUIRED TO BE FASTING? No 01/14/2025 10:56 AM CDT [facility] GFR, ESTIMATED >60 >=60 01/14/2025 10:56 AM CDT [facility] Comment: Creatinine Clearance is the preferred criteria for selecting drug dose adjustments in renally impaired patients. The GFR is provided as additional pertinent clinical information. GFR is reported in mL/min/1.73 sq m. Calculation based on the Chronic Kidney Disease Epidemiology Collaboration (CKD- EPI) equation refit without adjustment for race. GFR, EST. >60 >=60 025 10:56 AM CDT [facility] GFR, EST. NONAFRICAN >60 >=60 01/14/2025 10:56 AM CDT [facility] Blood Venipuncture / Unknown 01/14/2025 9:15 AM CDT 01/14/2025 10:27 AM CDT Stone Cano MD CHEMISTRY ORDERABLES Final Re sult [facility] [address] [place] [address] * DERMATOLOGY CONSULT (12/01/2024 12:00 AM CDT) 12/01/2024 us Provider Scan GENERIC SCAN ORDERS CONSULT Raisa l Result SCAN * HEPATITIS C ANTIBODY (09/03/2017 10:11 AM TIP PRINTER) hepatitis C antibody 0.10 <1 S/CO 09/03/2017 11:07 PM TIP PRINTER [facility] Comment: Signal/Cutoff ratio < 0.79 is Nondetected Signal/Cutoff ratio 0.80-0.99 is Grayzone Signal/Cutoff ratio > 0.99 is Detected Supplemental assays are recommended if signal/cutoff ratio is >/=1.00. Signal/cutoff ratio result >/= 5.00 is 97% predictive of positivity for recombinant immunoblot assay (RIBA) and will be reported to the [place] [facility] as required. Blood specimen (specimen) Venipuncture / Unknown 09/03/2017 10:11 AM TIP PRINTER 09/03/2017 10:11 AM TIP PRINTER us Stone Cano MD CHEMISTRY ORDERABLES Final Re sult [facility] [address] [place] [address], [place] from Last 3 Months or Most Recently Relevant to Health Maintenance Insurance MEDICARE E-Diversify Yourself Care Teams Furnace Combustion Tester Relationship Specialty Start Date End Date Stone Cano MD [address] [address] PCP - General Family Medicine 06/03/15 Santana Hicks APRN, PRECIPITATOR SUPERVISOR #2 [place] [address] Nurse Practitioner Advanced Practice Nurse 06/06/22 Emiliano Dave MD #2 [place] [address] Consulting Physician Gastroenterology 09/07/22
--- OUTSIDE RECORDS SUMMARY | 2025-01-20 15:44 | XMS_ITS | Encounter Summary ---
Author Organization [employer] Care Team Providers Care Power Plant Assistant Name Role Phone Stone Cano MD Primary Care Provider [phone] Santana Hicks APRN, CNP Unavailable [phone] Emiliano Dave MD Unavailable [phone] Encounter Details Date Type Department Care Team (Latest Contact Info) Description 01/19/2025 Travel Social History Tobacco Use Types Packs/Day Years Used Date Smoking Tobacco: Never Smokeless Tobacco: Never Alcohol Use Standard Drinks/Week Comments Yes 0 (1 standard drink = 0.6 oz pur e alcohol) twice a week [facility] Utilities Answer Date Recorded In the past 12 months has [employer] electric, gas, oil, or water company threatened [...] 08/16/2024 How often do you attend chur ch or congregation services? Never 08/16/2024 Do you belong to any clubs o r organizations such as mandaeism groups, unions, fraternal or athletic groups, or [...] Total Score - Questions 1-9 0 02/2024 [facility] - [...] place to sleep or slept in a longterm (including now)? No 08/18/2023 Housing Stability Vital Sign Answer Shaun e Recorded In the last 12 months, was t here a time when you were not able to pay the mortgage or rent on time? No 08/16/19 25 Number of Times Moved in the Last Year Not on fi le 08/16/2024 At any time in the past 12 m [facility], were you homeless or living in a longterm (including now)? Patient declined 08/16/2024 Education Answer [...] Visit [facility] [place] [address] Stone Cano MD #[address] [address] 04/21/2025 11:15 AM CDT Office Visit [facility] #2 [place] [address] Santana Hicks APRN, CAR DETAILER [address] [place] [address] documented as of this encounter Visit Diagnoses Not on filedocumented in this encounter Additional Health Concerns Assessment Noted Time PHQ-9 Depression Total Score: 0 02/21/20 24 9:31 AM CDT documented as of this encounter Care Teams Power Plant Assistant Relationship Specialty Start Date End Date Stone Cano MD #[address] [address] PCP - General Family Medicine 06/03/15 Santana Hicks APRN, JOSE [address] [place] [address] Nurse Practitioner Advanced Practice Nurse 06/06/22 Emiliano Dave MD #[address] [place] [address] Consulting Physician Gastroenterology 09/07/22 documented as of this encounter
--- OUTSIDE RECORDS SUMMARY | 2025-01-20 15:44 | XMS_ITS | Encounter Summary ---
Author Organization [facility] Address [address] [place] [address] Phone Care Team Providers Care Construction Equipment Operator Name Role Phone Stone Cano MD Primary Care Provider [phone] Santana Hicks APRN, PATIENT CARE NURSING ASSISTANT Unavailable [phone] Emiliano Dave MD Unavailable [phone] Reason for Visit * Reason Comments Medication Refill Encounter Details Date Type Department Care Team (Late st Contact Info) Description 11/25/2020 Refill [facility] - Family Medicine [facility] #2 [place] [phone] Stone Cano MD #[address] [address] Medication Refill Social History Tobacco Use Types [...] Outpatient Visits 3 months ago Essential hypertension [facility] - Stone Simon MD 12 months ago Essential hypertension [facility] - Stone Simon MD 1 year ago Chronic right shoulder pain [facility] - Missy De Leon APN, PATIENT CARE NURSING ASSISTANT 1 year ago [facility] Simon MD 1 year ago Essential hypertension [facility] Stone Simon MD Upcoming Appointments Future Appointments In 1 month Canelo Garcia MD [facility], [facility] In 2 months [facility], [facility] In 3 months Stone Cano MD [facility] A BUSINESS OBJECTS CONSULTANT - Recent and Past Visits Recent Visits Date Type Provider Dept 08/19/20 Office Visit Stone Cano MD [facility] 11/27/19 Telemedicine Stone Cano MD [facility] Showing recent visits within past 460 days with a meds authorizing provider and meeting all other requirements Future Appointments Date Type Provider Dept 08/11/21 Appointment Stone Cano MD [facility] Showing future appointments within next 90 days with a meds authorizing provider and meeting all other requirements documented in this encounter Plan of Treatment Upcoming Encounters Date Type Department Care Team (Late st Contact Info) Description 02/23/2025 10:30 AM CDT Office Visit [facility] Group - Family Medicine - [place] [address] [place] [address] Stone Cano MD #[address] [address] 04/21/2025 11:15 AM CDT Office Visit [facility] #2 [place] [address] Santana Hicks APRN, PATIENT CARE NURSING ASSISTANT [address] [place] [address] documented as of this encounter Visit Diagnoses Not on filedocumented in this encounter Additional Health Concerns Infection Onset Date Last Indicated Resolved Time COVID - 19 11/10/2023 11/10/2023 11/10/2023 12:3 1 PM CDT Assessment Noted Time PHQ-9 Depression Total Score: 0 08/19/19 21 9:04 AM EDGE STAINER 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
--- OUTSIDE RECORDS SUMMARY | 2025-01-20 15:44 | XMS_ITS | Encounter Summary ---
Author Organization [facility] Address [address] [place] [address] Phone Care Team Providers Care Candy Bar Attendant Name Role Phone Stone Cano MD Primary Care Provider [phone] Santana Hicks APRN, CAREER CONSULTANT Unavailable [phone] Emiliano Dave MD Unavailable [phone] Reason for Visit * Reason Comments Medication Refill Encounter Details Date Type Department Care Team (Late st Contact Info) Description 05/29/2023 [facility]ill [facility] [address] [place] [id number] Stone Cano MD [address] [address] Medication Refill Social History Tobacco Use Types [...] Dept 03/06/23 Office Visit Stone Cano MD [facility] 09/05/22 Office Visit Stone Cano MD [facility] Cristian Showing recent visits within past 365 days and meeting all other requirements Future Appointments No visits were found meeting these conditions. Showing future appointments within next 90 days and meeting all other requirements L WORKER documented in this encounter Plan of Treatment Upcoming Encounters Date Type Department Care Team (Late st Contact Info) Description 02/23/2025 10:30 AM CDT Office Visit [facility] - Family Medicine - [place] [address] [place] [address] Stone Cano MD [address] [address] 04/21/2025 11:15 AM CDT Office Visit [facility] [address] [place] [address] Santana Hicks, VALLEZ FILTER OPERATOR, CAREER CONSULTANT [address] [place] [address] documented as of this encounter Visit Diagnoses Diagnosis Anxiety Anxiety state, unspecified documented in this encounter Additional Health Concerns Infection Onset Date Last Indicated Resolved Time COVID - 19 11/10/2023 11/10/2023 11/10/2023 12:3 1 PM CDT Assessment Noted Time PHQ-9 Depression Total Score: 0 09/05/19 23 8:00 AM STEEL WORKER documented as of this encounter Care Teams Candy Bar Attendant Relationship Specialty Start Date End Date Stone Cano MD [address] [address] PCP - General Family Medicine 06/03/15 Santana Hicks APRN, JOSE [address] [place] [address] Nurse Practitioner Advanced Practice Nurse 06/06/22 Emiliano Dave MD [address] [place] [address] Consulting Physician Gastroenterology 09/07/22 documented as of this encounter
--- OUTSIDE RECORDS SUMMARY | 2025-01-20 15:44 | XMS_ITS | Encounter Summary ---
Author Organization [facility] Address [address] [place] [address] Phone Care Team Providers Care Syrup Mixer Helper Name Role Phone Stone Cano MD Primary Care Provider [phone] Santana Hicks APRN, PUNCH OPERATOR Unavailable [phone] Emiliano Dave MD Unavailable [phone] Reason for Visit * Reason Comments Medication Refill Encounter Details Date Type Department Care Team (Late st Contact Info) Description 10/27/2023 Refill [facility] - Family Medicine [facility] [address] [place] [address] Stone Cano MD [address] [address] Medication Refill Social History Tobacco Use Types Packs/Day Years Used Date Smoking Tobacco: Never Smokeless Tobacco: Never Alcohol Use Standard Drinks/Week Comments Yes 0 (1 standard drink = 0.6 oz pur e alcohol) twice a week [facility] Utilities Answer Date Recorded In the past [...] How often do you attend chur or roman catholic services? Patient declined 08/18/2023 Do you belong to any clubs o r organizations such as sikh groups, unions, fraternal or athletic groups, or [...] Total Score - Questions 1-9 0 11/2023 [facility] - Occupational Stress Questionnaire Answer Date [...] place to sleep or slept in a long term (including now)? No 08/18/2023 Education Answer Date [...] Dept 08/20/23 Office Visit Stone Cano MD [facility] Cristian 03/06/23 Office Visit Stone Cano MD [facility] Cristian Showing recent visits within past 365 [...] Office Visit [facility] [address] [facility] [place] [address] Stone Cano MD [address] [facility] [place] [address] 04/21/2025 11:15 AM CDT Office Visit [facility] [address] [place] [address] Santana Hicks APRN, PUNCH OPERATOR [address] [place] [address] documented as of this encounter Visit Diagnoses Not on filedocumented in this encounter Additional Health Concerns Infection Onset Date Last Indicated Resolved Time COVID - 19 11/10/2023 11/10/2023 11/10/2023 12:3 1 PM CDT Assessment Noted Time PHQ-9 Depression Total Score: 0 08/20/19 8:46 AM DAIRY 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
--- OUTSIDE RECORDS SUMMARY | 2025-01-20 15:44 | XMS_ITS | Continuity of Care Document ---
Author Organization [facility] Address [address] [place] [address] Phone Care Team Providers Care Poultry Field Service Technician Name Role Phone Unavailable Unavailable Unavailable Procedures Procedure Date Comprehensive Oral Evaluation 7 Full Mouth Series Of Radiographic Images Dental Panoramic Radiographic Image Advance Directives Directive Yes / No Effective Date File Name No Information Encounters Encounter Description Practice Location Reason(s) For Visit Diagnoses Date Provider Providers Copied on Encounter [facility] , [address], [place], [place], [id number], tel:[phone] [facility] Encounter for dental exam and cleaning w abnormal findings No Information Referring Provider: Chayito Limon, [address], [place], [address]. tel:[phone] Family History Family Member Type Diagnosis Age At Onset No Information Payers Payer name Insurance type Covered democrat ID Authoriza tion(s) No Information Social History [...]
--- OUTSIDE RECORDS SUMMARY | 2025-01-20 15:44 | XMS_ITS ---
Author Organization [facility] Address [address] [place] [address] Phone Care Team Providers Care Flight Operations Coordinator Name Role Phone Stone Cano MD Primary Care Provider [phone] Santana Hicks APRN, WELDER APPRENTICE GAS Unavailable [phone] Emiliano Dave MD Unavailable [phone] OnCall Chronic Care Management Status:Identified (Enrolling) Start date:01/19/2025 Enrollment reason:Identified using claims or encounter data Related social drivers of health:Intimate Partner Violence, Social Connections, Alcohol Use, Tobacco Use, Financial Resource Strain,Depression, Stress, Physical Activity, Food Insecurity, Transportation Needs, Housing Stability, Utilities Continued Care and Services Coordination
--- OUTSIDE RECORDS SUMMARY | 2025-01-20 15:44 | XMS_ITS | Continuity of Care Document ---
Author Name [facility] Organization [facility] Care Team Providers Care Custodial Foreman Name Role Phone [facility] Unavailable Unavailable Problems Combined list of problems from Department [facility] and [facility] facilities. It does not include entries that were removed or entered in error. Problem Status Onset Date Problem Type Date of Resolution Comments Source Alcohol Abuse Active Condition [facility] Major Depressive Disorder, Recurrent Active Condition [facility] Medications Combined list of outpatient medications from [facility] and [facility] facilities.Medications provided include 1) outpatient medications from the last 15 months, and 2) patient-reported medications. Medication Details Route Status Patient Instructions Prescription Expires Prescription Number Last Dispense Date Ordering Provider Order Date Order Qty Source ALBUTEROL SULFATE HFA (albuterol sulfate), 90 MCG, HFA AER AD, INHALATION, [facility]/ IKMA, 6.7 g CANISTER Active [id number] 4 2023 6.7 Pharmac y Data Transac tion Service Facilit y ALPRAZOLAM (ALPRAZOLAM ), 1MG, TABLET, ORAL, ACTAVIS ELIZABE, 500 ea. BOTTLE Active [id number] 4 2023 180 Pharmac y Data Transac tion Service Facilit y ASPIRIN 81MG TAB,EC TAKE ONE TABLET BY MOUTH ONCE A DAY ORAL ACTIVE LATAL,BAR ISABELLE S 2011 [facility] ATENOLOL 50MG TAB TAKE ONE-HALF TABLET BY MOUTH ONCE A DAY ORAL ACTIVE LATAL,BAR ISABELLE S 2011 [facility] BENZONATATE (benzonatat e), 200 MG, CAPSULE, ORAL, STRIDES PHARMA, 100 ea. BOTTLE Active [id number] 4 2023 42 Pharmac y Data Transac tion Service Facilit y CHLORTHALID ONE (chlorthali done), 25 MG, TABLET, ORAL, 'S LAB, 1000 ea. BOTTLE Active [id number] 4 2023 90 Pharmac y Data Transac tion Service Facilit y CYANOCOBALA MIN 1000MCG TAB TAKE ONE TABLET BY MOUTH ONCE A DAY ORAL ACTIVE LATAL,JAYLAN ISABELLE S 2011 [facility] FINASTERIDE (FINASTERID E), 5 MG, TABLET, ORAL, EXELAN PHARMACE, 90 ea. BOTTLE Active [id number] 4 2023 90 Pharmac y Data Transac tion Service Facilit y FINASTERIDE 5MG TAB TAKE ONE TABLET BY MOUTH ONCE A DAY ORAL ACTIVE LATAL,[facility] 2011 [facility] FISH OIL CAP/TAB TAKE 1 CAP/TAB BY MOUTH ONCE A DAY ORAL ACTIVE LATAL,[facility] S 2011 [facility] GLUCOSAMINE CAP/TAB TAKE 1 CAP/TAB BY MOUTH ONCE A DAY ORAL ACTIVE LATAL,[facility] S 2011 [facility] HYDROCHLORO THIAZIDE 25MG TAB TAKE ONE TABLET BY MOUTH EVERY MORNING ORAL ACTIVE LATAL,[facility] S 2011 [facility] MULTIVITAMI N/MINERALS ANTIOXIDANT CAP/TAB TAKE ONE TABLET BY MOUTH ONCE A DAY ORAL ACTIVE LATAL,[facility] S 2011 [facility] MULTIVITAMI NS CAP/TAB TAKE ONE TABLET BY MOUTH ONCE A DAY ORAL ACTIVE LATAL,[facility] S 2011 [facility] OMEPRAZOLE (omeprazole ), 20 MG, CAPSULE DR ORAL, [place], 1000 ea. BOTTLE Active [id number] 4 2023 90 Pharmac y Data Transac tion Service Facilit y OMEPRAZOLE 20MG CAP,EC TAKE 1 CAPSULE BY MOUTH EVERY MORNING ORAL ACTIVE LATAL,JAYLAN ISABELLE S 2011 [facility] POLYMYXIN B SUL-TRIMETH OPRIM (POLYMYXIN B SULFATE/TMP ), 10K/ML-0.1, DROPS, OPHTHALMIC, ARRIOLA PHARM, 10 ml DROP BTL Active [id number] 11/10/19 2 4 2023 10 Pharmac y Data Transac tion Service Facilit y PREDNISONE (prednisone ), 20 MG, TABLET, ORAL, NOVITIUM/AN I PH, 500 ea. BOTTLE Active [id number] 4 2023 30 Pharmac y Data Transac tion Service Facilit y PREDNISONE (prednisone ), 20 MG, TABLET, ORAL, NOVITIUM/AN I PH, 500 ea. BOTTLE Active [id number] 4 2023 10 Pharmac y Data Transac tion Service Facilit y QUINAPRIL HCL 20MG TAB TAKE TWO TABLETS BY MOUTH ONCE A DAY ORAL ACTIVE LATAL,JAYLAN TIANA S 2011 [facility] SIMVASTATIN 80MG TAB TAKE ONE-HALF TABLET BY MOUTH EVERY EVENING ORAL ACTIVE LATAL,JAYLAN ISABELLE S 2011 [facility] TAMSULOSIN HCL (TAMSULOSIN HCL), 0.4 MG, CAP.SR 24H, ORAL, ZYDUS PHARMACEU, 1000 ea. BOTTLE Active [id number] 4 2023 90 Pharmac y Data Transac tion Service Facilit y TAMSULOSIN HCL 0.4MG CAP TAKE 1 CAPSULE BY MOUTH ONCE A DAY ORAL ACTIVE LATAL,JAYLAN ISABELLE S 2011 [facility] XYOSTED (testostero ne enanthate), 100 MG/0.5, AUTO INJCT, SUBCUT, ANTARES PHARMA, .5 ml SYRINGE Active [id number] 4 2023 6 Pharmac y Data Transac tion Service Facilit y XYOSTED (testostero ne enanthate), 100 MG/0.5, AUTO INJCT, SUBCUT, ANTARES PHARMA, .5 ml SYRINGE Active [id number] 4 2023 2 Pharmac y Data Transac tion Service Facilit y XYOSTED (testostero ne enanthate), 100 MG/0.5, AUTO INJCT, SUBCUT, ANTARES PHARMA, .5 ml SYRINGE Cancele d [id number] : 2023 0 Pharmac y Data Transac tion Service Facilit y XYOSTED (testostero ne enanthate), 100 MG/0.5, AUTO INJCT, SUBCUT, ANTShahab P. Tabatabai, Broker PHARMA, .5 ml SYRINGE Cancele d [id number] : 2023 0 Pharmac y Data Transac tion Service Facilit y Immunizations Combined list of available immunizations from the Department of Defense and Veterans Affairs facilities. Immunization Series Date Given Administered By Site Reaction Lot Number CVX Code Drug Cash Clerk Status Comments Source influenza, high-dose, quadrivalent 2020 ALUL, () Not Given influenza , high-dose , quadrival ent [facility] influenza virus vaccine, split virus (incl. purified surface antigen)-reti red CODE 1 2006 Unknown, Provider [id number] Sanofi Pasteur ([facility]) complet ed influenza virus vaccine, split virus (incl. purified surface antigen)- retired CODE [facility] typhoid vaccine, parenteral, other than acetone-kille d, dried 1 2006 Unknown, Provider [id number] Sanofi Pasteur ([facility]) complet ed typhoid vaccine, parentera l, other than acetone-k illed, dried [facility] influenza virus vaccine, split virus (incl. purified surface antigen)-reti red CODE 1 2005 Unknown, Provider [id number] Sanofi Pasteur ([facility]) complet ed influenza virus vaccine, split virus (incl. purified surface antigen)- retired CODE [facility] influenza virus vaccine, split virus (incl. purified surface antigen)-reti red CODE 1 2004 Unknown, Provider [id number] 15 Sanofi Pasteur ([facility]) complet ed influenza virus vaccine, split virus (incl. purified surface antigen)- retired CODE [facility] typhoid vaccine, parenteral, other than acetone-kille d, dried 1 2004 Unknown, Provider [id number] Sanofi Pasteur ([facility]) complet ed typhoid vaccine, parentera l, other than acetone-k illed, dried [facility] influenza virus vaccine, split virus (incl. purified surface antigen)-reti red CODE 1 2004 Unknown, Provider [id number] 15 Sanofi Pasteur ([facility]) complet ed influenza virus vaccine, split virus (incl. purified surface antigen)- retired CODE [facility] influenza virus vaccine, whole virus 1 2002 Unknown, Provider [id number] [employer] (PW) complet ed influenza virus vaccine, whole virus DoD typhoid vaccine, parenteral, other than acetone-kille d, dried 1 2002 Unknown, Provider [id number] 41 [facility] ([facility]) complet ed typhoid vaccine, parentera l, other than acetone-k illed, dried DoD influenza virus vaccine, whole virus 1 2001 Unknown, Provider [id number] [facility] ([facility]) complet ed influenza virus vaccine, whole virus DoD tuberculin skin test; purified protein derivative solution, intradermal 1 2001 Unknown, Provider [id number] [facility] ([facility]) complet ed tuberculi n skin test; purified protein derivativ e solution, intraderm al DoD influenza virus vaccine, whole virus 1 2000 Unknown, Provider [id number] 16 [facility] ([facility]) complet ed influenza virus vaccine, whole virus DoD typhoid vaccine, parenteral, other than acetone-kille d, dried 2000 Unknown, Provider [id number] [facility] ([facility]) complet ed typhoid vaccine, parentera l, other than acetone-k illed, dried DoD tuberculin skin test; purified protein derivative solution, intradermal 1 2000 Unknown, Provider [id number] [facility] ([facility]) complet ed tuberculi n skin test; purified protein derivativ e solution, intraderm al DoD influenza virus vaccine, whole virus 1 1999 Unknown, Provider [id number] 16 YuKeira ([facility]) complet ed influenza virus vaccine, whole virus DoD tuberculin skin test; purified protein derivative solution, intradermal 1 1999 Unknown, Provider [id number] [facility] ([facility]) complet ed tuberculi n skin test; purified protein derivativ e solution, intraderm al DoD hepatitis A vaccine, adult dosage 2 1999 Unknown, Provider [id number] Merck (MSD) complet ed hepatitis A vaccine, adult dosage DoD typhoid vaccine, parenteral, other than acetone-kille d, dried 1 1998 Unknown, Provider [id number] [place] (CON) complet ed typhoid [...] and 2 Lf of diphtheri a toxoid) [facility] hepatitis A vaccine, adult dosage 1 1998 Unknown, Provider [id number] [employer] (MSD) complet ed hepatitis A vaccine, adult dosage DoD influenza virus vaccine, whole virus 1 1998 Unknown, Provider [id number] [place] (CON) complet ed influenza virus [...] ADM Date DC Date Status Disposition Source [facility] Outpatient Encounter [id number] 06/09 [facility] Social History Combined list of available smoking, tobacco, and other social history from Department of Defense and Veterans Affairs facilities. Social History Type Response Date Comment Sourc e Tobacco smoking status NHIS LIFETIME NON-USER OF TOBACCO 02/09/2012 [facility] This section is an empty social history section. DoD
== END 2025-01-20 15:40 | disposition home or self-care (01) ==
PROVIDERS: PCP Internal Medicine; Visit Provider Otolaryngology
DX: J01.01 Acute recurrent maxillary sinusitis (principal); J32.2 Chronic ethmoidal sinusitis; H90.6 Mixed conductive and sensorineural hearing loss, bilateral; H69.90 Unspecified Eustachian tube disorder, unspecified ear
CPT/HCPCS: 70486